=== PATIENT | female | born 1960 | race Caucasian/White ===

== ENCOUNTER 2019-05-19 06:40 | Day surgery (SDC) | payer OTHER ==
[~2019-05-19 06:40] MED LIST: Clindamycin Phosphate 900 MG in Dextrose 5% in Water 50 ML IV SCH; Clindamycin Phosphate in D5W 900 MG in Premix Bag 1 BAG IV ONE; DEXTROSE 5% IV ONE; GENTAMICIN IV ONE; Gentamicin Pediatric 10 MG/ML 2 ML SDV IV ONE; Lactated Ringers 1,000 ML IV SCH; Sodium Chloride 0.9% 10 ML SDV IV PRN; Sodium Chloride 0.9% 10 ML Syringe FLUSH PRN; Sodium Chloride 0.9% 2.5 ML Syringe FLUSH PRN; WATER IV ONE
[2019-05-19] MEDS ORDERED: Rocuronium 100 MG/10 ML Syringe ONE (07:06)
[2019-05-19] MEDS ORDERED: Glycopyrrolate 0.2 MG/ML SDV ONE (07:06)
[2019-05-19] MEDS ORDERED: Ondansetron 4 MG/2 ML SDV ONE (07:06)
[2019-05-19] MEDS ORDERED: Neostigmine Methylsulfate 1 MG/ML 5 ML Syringe ONE (07:06)
[2019-05-19] MEDS ORDERED: Lidocaine 2% 5 ML SDV ONE (07:06)
[2019-05-19] MEDS ORDERED: Propofol 200 MG/20 ML SDV ONE (07:07)
[2019-05-19] MEDS ORDERED: fentaNYL 250 MCG/5 ML SDV ONE (07:07)
[2019-05-19] MEDS ORDERED: Midazolam 1 MG/ML 2 ML SDV ONE (07:07)
[2019-05-19] MEDS ORDERED: Lidocaine 1% 20 ML MDV ONE (07:34)
[2019-05-19] MEDS ORDERED: Bupivacaine 0.5% 10 ML SDV ONE (07:35)
[2019-05-19 07:38] LABS: CARBON DIOXIDE,CO2 30.8 mmol/L (21.0-32.0)
[2019-05-19] MEDS ORDERED: Fluorescein 5 ML Vial ONE (07:41)
[2019-05-19] MEDS ORDERED: Lidocaine 2% Jelly 30 ML Tube ONE (07:43)
[2019-05-19] MEDS ORDERED: Scopolamine 1.5 MG Transdermal Patch TRDERM PRN (07:53)
--- NOTE | 2019-05-19 07:56 | PCM.PREANE ---
Preanesthetic Assessment - Anesthesia/Transfusion/Family Hx Anesthesia History: Prior Anesthesia Without Reaction Other Type of Anesthesia Reaction Comment: sister has problems with N&V and is hard to wake after anesthesia Family History of Anesthesia Reaction: No Transfusion History: No Prior Transfusion(s) - Review of Systems General: No Symptoms Pulmonary: No Symptoms Cardiovascular: No Symptoms Gastrointestinal: No Symptoms - Physical Assessment Vital Signs: Last Vital Signs Temp 98.2 F 05/19/19 07:47 Pulse Resp 16 05/19/19 07:47 BP 142/73 H 05/19/19 07:47 Pulse Ox 97 05/19/19 07:47 Height: 5 ft 5 in Weight: 120.202 kg ASA Class: 2 Mental Status: Alert & Oriented x3 Airway Class: Mallampati = 3 Dentition: Reports: Bridge (lateral maxillary ) ROM/Head Extension: Full Lungs: Clear to Auscultation, Normal Respiratory Effort Cardiovascular: Regular Rate, Regular Rhythm - Lab Values: Laboratory Last Values WBC 6.99 K/uL (4.0-11.0) 05/19/19 07:10 RBC 4.72 M/uL (4.30-5.90) 05/19/19 07:10 Hgb 14.8 g/dL (12.0-16.0) 05/19/19 07:10 Hct 44.0 % (36.0-46.0) 05/19/19 07:10 MCV 93.2 fL (80.0-98.0) 05/19/19 07:10 MCH 31.4 pg (27.0-32.0) 05/19/19 07:10 MCHC 33.6 g/dL (31.0-37.0) 05/19/19 07:10 RDW Std Deviation 48.0 fl (28.0-62.0) 05/19/19 07:10 RDW Coeff of [place] 14 % (11.0-15.0) 05/19/19 07:10 Plt Count 303 K/uL (150-400) 05/19/19 07:10 MPV 10.50 fL (7.40-12.00) 05/19/19 07:10 Nucleated RBC % 0.0 /100WBC 05/19/19 07:10 Nucleated RBCs # 0 K/uL 05/19/19 07:10 Sodium 141 mmol/L (136-145) 05/19/19 07:10 Potassium 4.0 mmol/L (3.5-5.1) 05/19/19 07:10 Chloride 104 mmol/L (98-107) 05/19/19 07:10 Carbon Dioxide 30.8 mmol/L (21.0-32.0) 05/19/19 07:10 BUN 12 mg/dL (7.0-18.0) 05/19/19 07:10 Creatinine 1.2 mg/dL (0.6-1.0) H 05/19/19 07:10 Est Cr Clr Drug Dosing 44.30 mL/min 05/19/19 07:10 Estimated GFR (MDRD) 45.7 ml/min 05/19/19 07:10 Glucose 118 mg/dL (74-106) H 05/19/19 07:10 Calcium 9.5 mg/dL (8.5-10.1) 05/19/19 07:10 - Allergies Allergies/Adverse Reactions: Allergies Allergy/AdvReac Type Severity Reaction Status Date / Time amoxicillin Allergy Hives Verified 05/19/19 07:50 - Blood Blood Available: No - Anesthesia Plan Pre-Op Medication Ordered: None - Acknowledgements Anesthesia Type Planned: General Anesthesia Pt an Appropriate Candidate for the Planned Anesthesia: Yes Alternatives and Risks of Anesthesia Discussed w Pt/Guardian: Yes Pt/Guardian Understands and Agrees with Anesthesia Plan: Yes Additional Comments: PMH: psoriatic arthritis, fibromyalgia, urinary incontinence, HTN, gabipentin for joint pain PLAN: get PreAnesthesia Questionnaire HEENT History: Reports: None Cardiovascular History: Reports: High Cholesterol, Hypertension Respiratory History: Reports: None Gastrointestinal History: Reports: GERD Genitourinary History: Reports: UTI, Recurrent, Other (See Below) Other Genitourinary History: stress incontinence [employer] CHASER History: Reports: Musculoskeletal History: Reports: Fibromyalgia, RA Other Musculoskeletal History: posaritic arthritis Neurological History: Reports: None Psychiatric History: Reports: Anxiety, Depression Endocrine/Metabolic History: Reports: Obesity/BMI 30+, Osteopenia Hematologic History: Reports: None Immunologic History: Reports: None Oncologic (Cancer) History: Reports: None Dermatologic History: Reports: Other (See Below) Other Dermatologic History: posaritic arthritis - Past Surgical History Head Surgeries/Procedures: Reports: None HEENT Surgical History: Reports: Cataract Surgery, Other (See Below) Other HEENT Surgeries/Procedures: laser of both eyes, bren cataract extraction, eye lid lift Cardiovascular Surgical History: Reports: None Respiratory Surgical History: Reports: None GI Surgical History: Reports: Colonoscopy Female Surgical History: Reports: Breast Biopsy, Cervical Cryotherapy Endocrine Surgical History: Reports: None Neurological Surgical History: Reports: None Musculoskeletal Surgical History: Reports: None Oncologic Surgical History: Reports: Biopsy of Breast Dermatological Surgical History: Reports: None - SUBSTANCE USE Smoking Status *Q: Former Smoker Tobacco Use Within Last Twelve Months: No Recreational Drug Use History: No - HOME MEDS Home Medications: Home Meds DULoxetine HCl [Duloxetine HCl] 20 mg PO DAILY 05/15/19 [History] Etanercept [Enbrel] 1 injection SUBCUT WEEKLY 05/15/19 [History] Folic Acid 1 mg PO DAILY 05/15/19 [History] Furosemide [Lasix] 20 mg PO DAILY 05/15/19 [History] Gabapentin [Neurontin] 600 mg PO TID 05/15/19 [History] Herbal Supplements 1 dose PO ASDIRECTED 05/15/19 [History] Magnesium Oxide [Magnesium] 1 tab PO BEDTIME 05/15/19 [History] Nystatin 1 applic TOP TID PRN 05/15/19 [History] Oxybutynin Chloride [Oxybutynin Chloride ER] 10 mg PO DAILY 05/15/19 [History] Triamcinolone Acetonide [Nasacort] 1 spray NASBOTH ASDIRECTED PRN 05/15/19 [ History] Trimo-Kc Cream 1 insert VAG ASDIRECTED 05/15/19 [History] atorvaSTATin Calcium [Atorvastatin Calcium] 40 mg PO BEDTIME 05/15/19 [History] estradioL [Estrace 0.01% Vaginal Crm] 1 insert VAG ASDIRECTED 05/15/19 [History] metHOTREXate sodium [Trexall] 6 tab PO WEEKLY 05/15/19 [History] traZODone HCl [Trazodone HCl] 0.5 tab PO BEDTIME 05/15/19 [History] - CURRENT (IN HOUSE) MEDS Current Meds: Current Medications Lactated Ringer's (Ringers, Lactated) 1,000 mls @ 500 mls/hr IV BOLUS JIMBO Last Admin: 05/19/19 07:40 Dose: 500 mls/hr Sodium Chloride (Saline Flush) 10 ml FLUSH ASDIRECTED PRN PRN Reason: Keep Vein Open Sodium Chloride (Saline Flush) 2.5 ml FLUSH ASDIRECTED PRN PRN Reason: Keep Vein Open Sodium Chloride (Normal Saline) 10 ml IV ASDIRECTED PRN PRN Reason: IV Use Discontinued Medications Bupivacaine HCl (Sensorcaine-Mpf 0.5%) Confirm Administered Dose 20 ml .ROUTE .STK-MED ONE Stop: 05/19/19 07:36 Fentanyl (Sublimaze) Confirm Administered Dose 250 mcg .ROUTE .STK-MED ONE Stop: 05/19/19 07:08 Fluorescein Sodium (Ak-Fluor) Confirm Administered Dose 5 ml .ROUTE .STK-MED ONE Stop: 05/19/19 07:42 Gentamicin Sulfate (Gentamicin) 0 mg IV ONETIME ONE Stop: 05/19/19 06:07 Glycopyrrolate (Robinul) Confirm Administered Dose 0.4 mg .ROUTE .STK-MED ONE Stop: 05/19/19 07:07 Clindamycin Phosphate 900 mg/ (Dextrose/Water) 56 mls @ 100 mls/hr IV ONETIME JIBMO Gentamicin Sulfate 285 mg/ (Dextrose/Water) 107.125 mls @ 107.125 mls/hr IV NOW ONE Stop: 05/19/19 07:29 Clindamycin Phosphate 900 mg/ (Premix) 50 mls @ 100 mls/hr IV NOW ONE Stop: 05/19/19 06:59 Last Admin: 05/19/19 07:30 Dose: 100 mls/hr Lidocaine (Xylocaine-Mpf 2%) Confirm Administered Dose 5 ml .ROUTE .STK-MED ONE Stop: 05/19/19 07:07 Lidocaine HCl (Xylocaine 1%) Confirm Administered Dose 20 ml .ROUTE .STK-MED ONE Stop: 05/19/19 07:35 Lidocaine HCl (Xylocaine 2% Jelly) Confirm Administered Dose 30 ml .ROUTE .STK- MED ONE Stop: 05/19/19 07:44 Midazolam HCl (Versed 1 Mg/Ml) Confirm Administered Dose 2 mg .ROUTE .STK-MED ONE Stop: 05/19/19 07:08 Neostigmine Methylsulfate (Neostigmine) Confirm Administered Dose 5 mg .ROUTE .STK-MED ONE Stop: 05/19/19 07:07 Ondansetron HCl (Zofran) Confirm Administered Dose 4 mg .ROUTE .STK-MED ONE Stop: 05/19/19 07:07 Propofol (Diprivan 20 Ml) Confirm Administered Dose 200 mg .ROUTE .STK-MED ONE Stop: 05/19/19 07:08 Rocuronium [place] (Zemuron) Confirm Administered Dose 100 mg .ROUTE .STK-MED ONE Stop: 05/19/19 07:07
[2019-05-19] MEDS ORDERED: Vasopressin 20 Units/1 ML MDV ONE ×2 (08:00→08:34)
[2019-05-19] MEDS ORDERED: ePHEDrine 50 MG/ML SDV ONE (08:22)
[2019-05-19] MEDS ORDERED: Furosemide 40 MG/4 ML VIAL ONE (08:24)
[2019-05-19] MEDS ORDERED: Phenylephrine/Normal Saline 100 MCG/ML 10 ML Syringe ONE (08:25)
[2019-05-19] MEDS ORDERED: Ketamine 500 mg/10 ML MDV ONE (08:42)
[2019-05-19] MEDS ORDERED: Dexamethasone 4 MG/ML 5 ML MDV ONE (09:16)
[2019-05-19] MEDS ORDERED: Albuterol 0.083% 2.5 MG/3 ML Neb Soln NEB PRN (09:47)
[2019-05-19] MEDS ORDERED: Naloxone 0.4 MG/ML Syringe IVPUSH PRN (09:47)
[2019-05-19] MEDS ORDERED: 50% Dextrose in Water 50 ML Syringe IVPUSH PRN (09:47)
[2019-05-19] MEDS ORDERED: Atropine 0.1 MG/ML 10 ML Syringe IVPUSH PRN ×2 (09:47)
[2019-05-19] MEDS ORDERED: EPINEPHrine 1:10,000 1 MG/10 ML Syringe IVPUSH PRN (09:47)
[2019-05-19] MEDS ORDERED: Acetaminophen/oxyCODONE 325-5 MG Tab PO PRN (11:16)
[2019-05-19] MEDS ORDERED: Promethazine 25 MG/ML SDV IM PRN (11:16)
[2019-05-19] MEDS ORDERED: Ketorolac 30 MG/ML SDV IVPUSH PRN ×2 (11:16→17:59)
[2019-05-19] MEDS ORDERED: Ketorolac 30 MG/ML SDV IVPUSH ONE (11:16)
[2019-05-19] MEDS ORDERED: Morphine 4 MG/ML Syringe IVPUSH PRN (11:16)
[2019-05-19] MEDS ORDERED: Ondansetron 4 MG/2 ML SDV IVPUSH PRN (11:16)
[2019-05-19] MEDS ORDERED: Dextrose 5%-0.45% NaCl 1,000 ML IV SCH ×2 (11:30→14:30)
--- NOTE | 2019-05-19 11:30 | PCM.OPNOTE ---
- General Post-Op/Procedure Note Date of Surgery/Procedure: 05/19/19 Operative Procedure(s): Total vaginal hysterectomy. Midurethral Single incision sling. Anterior Colporraphy. Cytoscopy Findings: Stage 2 Uterovaginal prolapse Cystocoele Normal sized anteverted uterus L Pre Op Diagnosis: Stress Urinary Incontinence. Stage 2 Uterovaginal prolapse. Cystocoele Post-Op Diagnosis: Same Primary Surgeon: Joel Terrell Secondary Surgeon: Stephanie Basilio Anesthesia Provider: Trent Dowd Pathology: Uterus Fluid Replacement, Intraop: 2,600 Output, Urine Amount: 175 EBL in mLs: 200 Complications: None Condition: Good
[2019-05-19] MEDS: fentaNYL 100 MCG/2 ML SDV IVPUSH PRN ×2 (12:04→12:13)
[2019-05-19] MEDS ORDERED: hydrALAZINE 20 MG/ML SDV IVPUSH ONE (13:06)
[2019-05-19] MEDS ORDERED: Erythromycin Base 0.5% Ophth Oint 1 GM Tube EYELF ONE (13:07)
--- NOTE | 2019-05-19 13:58 | PCM.POSTAN ---
POST ANESTHESIA ASSESSMENT - MENTAL STATUS Mental Status: Alert, Oriented - VITAL SIGNS Vital Signs: Last Vital Signs Temp 97.6 F 05/19/19 12:45 Pulse 88 05/19/19 12:45 Resp 19 05/19/19 12:45 BP 163/72 H 05/19/19 13:15 Pulse Ox 96 05/19/19 12:55 - RESPIRATORY Respiratory Status: Respiratory Rate WNL, Airway Patent, O2 Saturation Stable - CARDIOVASCULAR CV Status: Pulse Rate WNL, Blood Pressure Stable - GASTROINTESTINAL GI Status: No Symptoms - POST OP HYDRATION Hydration Status: Adequate & Stable
[2019-05-19] MEDS ORDERED: Metoclopramide 10 MG/2 ML SDV IVPUSH SCH (14:00)
[2019-05-19] MEDS ORDERED: Furosemide 20 MG Tab PO ONE (14:20)
[2019-05-19] MEDS: Mineral Oil/Petrolatum Ophth Oint 3.5 GM Tube EYELF SCH ×2 (15:30→21:30)
[2019-05-19 15:40] LABS: CARBON DIOXIDE,CO2 29.4 mmol/L (21.0-32.0); POTASSIUM,K 4.4 mmol/L (3.5-5.1)
[2019-05-19] MEDS ORDERED: Ketorolac 0.5% Ophth Soln 5 ML Bottle EYELF SCH (18:00)
[2019-05-19] MEDS ORDERED: Ibuprofen 800 MG Tab PO ONE (18:00)
--- NOTE | 2019-05-19 18:02 | PCM48HPAN ---
Post Anesthesia Note - EVALUATION WITHIN 48HRS OF ANESTHETIC Vital Signs in Normal Range: Yes Patient Participated in Evaluation: Yes Respiratory Function Stable: Yes Airway Patent: Yes Cardiovascular Function Stable: Yes Hydration Status Stable: Yes Pain Control Satisfactory: Yes Nausea and Vomiting Control Satisfactory: Yes Mental Status Recovered: Yes Vital Signs: Last Vital Signs Temp 99.0 F 05/19/19 12:45 Pulse 112 H 05/19/19 12:51 Resp 16 05/19/19 12:45 BP 163/72 H 05/19/19 13:15 Pulse Ox 97 05/19/19 17:15
[2019-05-19] MEDS: Acetaminophen/oxyCODONE 325-5 MG Tab PO PRN (21:31)
[2019-05-20] MEDS: Acetaminophen/oxyCODONE 325-5 MG Tab PO PRN ×2 (03:17→08:15)
[2019-05-20 06:45] LABS: CARBON DIOXIDE,CO2 29.8 mmol/L (21.0-32.0); POTASSIUM,K 4.6 mmol/L (3.5-5.1)
[2019-05-20] MEDS: Mineral Oil/Petrolatum Ophth Oint 3.5 GM Tube EYELF SCH (08:13)
[2019-05-20] MEDS ORDERED: Clindamycin Phosphate in D5W 900 MG in Premix Bag 1 BAG IV ONE ×2 (08:35)
[2019-05-20] MEDS ORDERED: Enoxaparin 40 MG/0.4 ML Syringe SUBCUT ONE (08:48)
--- NOTE | 2019-05-20 09:04 | PCM.SURGPN ---
- General Info Date of Service: 05/20/19 Date of Surgery/Procedure: 04/20/19 POD#: 1 Post-Op Diagnosis: Stress Urinary Incontinence. Uterovaginal prolapse. cystocoele Functional Status: Reports: Pain Controlled, Tolerating Diet, Ambulating, Urinating - Review of Systems General: Reports: No Symptoms HEENT: Reports: No Symptoms Pulmonary: Reports: No Symptoms Cardiovascular: Reports: No Symptoms Gastrointestinal: Reports: No Symptoms Genitourinary: Reports: No Symptoms Musculoskeletal: Reports: No Symptoms Skin: Reports: No Symptoms Neurological: Reports: No Symptoms Psychiatric: Reports: No Symptoms - Patient Data Vitals - Most Recent: Last Vital Signs Temp 37.1 C 05/20/19 08:15 Pulse 69 05/20/19 08:15 Resp 17 05/20/19 08:15 BP 146/67 H 05/20/19 08:15 Pulse Ox 100 05/20/19 08:15 Weight - Most Recent: 120.202 kg I&O - Last 24 Hours: Intake & Output 05/19/19 05/20/19 05/20/19 22:59 06:59 14:59 Output Total 2175 1725 Balance -2175 -1725 Lab Results Last 24 Hrs: Laboratory Results - last 24 hr 05/19/19 05/20/19 05/20/19 Range/Units 14:49 05:56 05:56 WBC 18.20 H (4.0-11.0) K/uL RBC 4.09 L (4.30-5.90) M/uL Hgb 12.6 (12.0-16.0) g/dL Hct 39.4 (36.0-46.0) % MCV 96.3 (80.0-98.0) fL MCH 30.8 (27.0-32.0) pg MCHC 32.0 (31.0-37.0) g/dL RDW Std Deviation 50.6 (28.0-62.0) fl RDW Coeff of [place]rbano 14 (11.0-15.0) % Plt Count 310 (150-400) K/uL MPV 10.60 (7.40-12.00) fL Neut % (Auto) 91.5 H (48.0-80.0) % Lymph % (Auto) 4.7 L (16.0-40.0) % [place] % (Auto) 3.7 (0.0-15.0) % Eos % (Auto) 0.0 (0.0-7.0) % Baso % (Auto) 0.1 (0.0-1.5) % Neut # (Auto) 16.7 H (1.4-5.7) K/uL Lymph # (Auto) 0.9 (0.6-2.4) K/uL [place] # (Auto) 0.7 (0.0-0.8) K/uL Eos # (Auto) 0.0 (0.0-0.7) K/uL Baso # (Auto) 0.0 (0.0-0.1) K/uL Nucleated RBC % 0.0 /100WBC Nucleated RBCs # 0 K/uL Sodium 140 140 (136-145) mmol/L Potassium 4.4 4.6 (3.5-5.1) mmol/L Chloride 103 103 (98-107) mmol/L Carbon Dioxide 29.4 29.8 (21.0-32.0) mmol/L BUN 10 12 (7.0-18.0) mg/dL Creatinine 1.2 H 1.3 H (0.6-1.0) mg/dL Est Cr Clr Drug Dosing 44.30 40.89 mL/min Estimated GFR (MDRD) 45.7 41.6 ml/min Glucose 161 H 128 H (74-106) mg/dL Calcium 8.5 8.4 L (8.5-10.1) mg/dL Med Orders - Current: Current Medications Lactated Ringer's (Ringers, Lactated) 1,000 mls @ 500 mls/hr IV BOLUS [facility] Last Admin: 05/19/19 07:40 Dose: 500 mls/hr Dextrose/Sodium Chloride (Dextrose 5%-1/2 Ns) 1,000 mls @ 100 mls/hr IV ASDIRECTED [facility] Clindamycin Phosphate 900 mg/ (Premix) 50 mls @ 100 mls/hr IV ONETIME ONE Stop: 05/20/19 09:04 Metoclopramide HCl (Reglan) 10 mg IVPUSH ONETIME [facility] Mineral Oil/White Petrolatum (Lacri-Lube S.O.P Oint) 1 gm EYELF BID [facility] Last Admin: 05/20/19 08:13 Dose: 1 applic Morphine Sulfate (Morphine) 4 mg IVPUSH Q2H PRN PRN Reason: Pain (severe 7-10) Last Admin: 05/19/19 13:34 Dose: 4 mg Ondansetron HCl (Zofran) 4 mg IVPUSH Q6H PRN PRN Reason: Nausea/Vomiting Oxycodone/Acetaminophen (Percocet 325-5 Mg) 1 tab PO Q4H PRN PRN Reason: Pain (moderate 4-6) Last Admin: 05/20/19 08:15 Dose: 1 tab Oxycodone/Acetaminophen (Percocet 325-5 Mg) 2 tab PO Q4H PRN PRN Reason: Pain (moderate 4-6) Promethazine HCl (Phenergan) 25 mg IM Q6H PRN PRN Reason: Nausea/Vomiting Scopolamine (Transderm-Scop) 1.5 mg TRDERM Q72H PRN PRN Reason: Nausea/Vomiting Last Admin: 05/19/19 07:58 Dose: 1.5 mg Sodium Chloride (Saline Flush) 10 ml FLUSH ASDIRECTED PRN PRN Reason: Keep Vein Open Sodium Chloride (Saline Flush) 2.5 ml FLUSH ASDIRECTED PRN PRN Reason: Keep Vein Open Sodium Chloride (Normal Saline) 10 ml IV ASDIRECTED PRN PRN Reason: IV Use Discontinued Medications Albuterol (Proventil Neb Soln) 2.5 mg NEB ONETIME PRN PRN Reason: Wheezing Atropine Sulfate (Atropine 0.1 Mg/Ml) 0.5 mg IVPUSH ASDIRECTED PRN PRN Reason: Hypo-perfusion Atropine Sulfate (Atropine 0.1 Mg/Ml) 1 mg IVPUSH ASDIRECTED PRN PRN Reason: Hypo-Perfusion Bupivacaine HCl (Sensorcaine-Mpf 0.5%) Confirm Administered Dose 20 ml .ROUTE .STK-MED ONE Stop: 05/19/19 07:36 Dexamethasone (Dexamethasone) Confirm Administered Dose 20 mg .ROUTE .STK-MED ONE Stop: 05/19/19 09:17 Dextrose/Water (Dextrose 50% In Water) 50 ml IVPUSH ASDIRECTED PRN PRN Reason: Hypoglycemia Enoxaparin Sodium (Lovenox) 40 mg SUBCUT ONETIME ONE Stop: 05/20/19 08:49 Ephedrine Sulfate (Ephedrine Sulfate) Confirm Administered Dose 50 mg .ROUTE .STK-MED ONE Stop: 05/19/19 08:23 Epinephrine HCl (Epinephrine 1:10,000) 1 mg IVPUSH ASDIRECTED PRN PRN Reason: ACLS Guidelines Erythromycin (Erythromycin 0.5% Ophth Oint) 1 gm EYELF ONETIME ONE Stop: 05/19/19 13:08 Last Admin: 05/19/19 13:24 Dose: 1 gram Fentanyl (Sublimaze) Confirm Administered Dose 250 mcg .ROUTE .STK-MED ONE Stop: 05/19/19 07:08 Fentanyl (Sublimaze) 50 mcg IVPUSH Q5M PRN PRN Reason: Pain Last Admin: 05/19/19 12:13 Dose: 50 mcg Fluorescein Sodium (Ak-Fluor) Confirm Administered Dose 5 ml .ROUTE .STK-MED ONE Stop: 05/19/19 07:42 Furosemide (Lasix) Confirm Administered Dose 40 mg .ROUTE .STK-MED ONE Stop: 05/19/19 08:25 Furosemide (Lasix) 20 mg PO ONETIME ONE Stop: 05/19/19 14:21 Last Admin: 05/19/19 14:56 Dose: 20 mg Gentamicin Sulfate (Gentamicin) 0 mg IV ONETIME ONE Stop: 05/19/19 06:07 Glycopyrrolate (Robinul) Confirm Administered Dose 0.4 mg .ROUTE .STK-MED ONE Stop: 05/19/19 07:07 Hydralazine HCl (Apresoline) 5 mg IVPUSH ONETIME ONE Stop: 05/19/19 13:07 Last Admin: 05/19/19 13:27 Dose: 5 mg Clindamycin Phosphate 900 mg/ (Dextrose/Water) 56 mls @ 100 mls/hr IV ONETIME JIMBO Gentamicin Sulfate 285 mg/ (Dextrose/Water) 107.125 mls @ 107.125 mls/hr IV NOW ONE Stop: 05/19/19 07:29 Last Admin: 05/20/19 08:45 Dose: Not Given Clindamycin Phosphate 900 mg/ (Premix) 50 mls @ 100 mls/hr IV NOW ONE Stop: 05/19/19 06:59 Last Admin: 05/19/19 07:30 Dose: 100 mls/hr Dextrose/Sodium Chloride (Dextrose 5%-1/2 Ns) 1,000 mls @ 125 mls/hr IV ASDIRECTED JIMBO Last Admin: 05/19/19 13:41 Dose: 125 mls/hr Ibuprofen (Motrin) 800 mg PO Q6H ONE Stop: 05/19/19 18:01 Ketamine HCl (Ketalar) Confirm Administered Dose 500 mg .ROUTE .STK-MED ONE Stop: 05/19/19 08:43 Ketorolac Tromethamine (Toradol) 30 mg IVPUSH ONETIME ONE Stop: 05/19/19 11:17 Last Admin: 05/19/19 11:58 Dose: 30 mg Ketorolac Tromethamine (Toradol) 30 mg IVPUSH Q6H PRN PRN Reason: Pain (severe 7-10) Stop: 05/24/19 11:16 Ketorolac Tromethamine (Acular 0.5% Ophth Soln) 1 ml EYELF QID [facility] Ketorolac Tromethamine (Toradol) 30 mg IVPUSH Q6H PRN PRN Reason: Pain (severe 7-10) Stop: 05/24/19 11:16 Lidocaine (Xylocaine-Mpf 2%) Confirm Administered Dose 5 ml .ROUTE .STK-MED ONE Stop: 05/19/19 07:07 Lidocaine HCl (Xylocaine 1%) Confirm Administered Dose 20 ml .ROUTE .STK-MED ONE Stop: 05/19/19 07:35 Lidocaine HCl (Xylocaine 2% Jelly) Confirm Administered Dose 30 ml .ROUTE .STK- MED ONE Stop: 05/19/19 07:44 Midazolam HCl (Versed 1 Mg/Ml) Confirm Administered Dose 2 mg .ROUTE .STK-MED ONE Stop: 05/19/19 07:08 Naloxone HCl (Narcan) 0.1 mg IVPUSH ASDIRECTED PRN PRN Reason: Respiratory Depression Neostigmine Methylsulfate (Neostigmine) Confirm Administered Dose 5 mg .ROUTE .STK-MED ONE Stop: 05/19/19 07:07 Ondansetron HCl (Zofran) Confirm Administered Dose 4 mg .ROUTE .STK-MED ONE Stop: 05/19/19 07:07 Phenylephrine HCl (Phenylephrine In Ns 100 Mcg/Ml) Confirm Administered Dose 1 mg .ROUTE .STK-MED ONE Stop: 05/19/19 08:26 Propofol (Diprivan 20 Ml) Confirm Administered Dose 200 mg .ROUTE .STK-MED ONE Stop: 05/19/19 07:08 Rocuronium [place] (Zemuron) Confirm Administered Dose 100 mg .ROUTE .STK-MED ONE Stop: 05/19/19 07:07 Vasopressin (Vasopressin) Confirm Administered Dose 20 units .ROUTE .STK-MED ONE Stop: 05/19/19 08:01 Vasopressin (Vasopressin) Confirm Administered Dose 20 units .ROUTE .STK-MED ONE Stop: 05/19/19 08:35 - Exam General: Alert HEENT: Pupils Equal Neck: Supple Lungs: Clear to Auscultation Cardiovascular: Regular Rate GI/Abdominal Exam: Normal Bowel Sounds Extremities: Normal Inspection Neurological: No New Focal Deficit Psy/Mental Status: Alert Sepsis Event Note - Evaluation Sepsis Screening Result: No Definite Risk - Focused Exam Vital Signs: Vital Signs Temp Pulse Resp BP Pulse Ox 05/20/19 08:15 37.1 C 69 17 146/67 H 100 05/20/19 00:00 36.7 C 74 18 139/64 94 L Date Exam was Performed: 05/20/19 Time Exam was Performed: 08:57 - Problem List & Annotations (1) S/P vaginal hysterectomy SNOMED Code(s): 825701174, 759395382 Code(s): Z90.710 - ACQUIRED ABSENCE OF BOTH CERVIX AND UTERUS Status: Acute Current Visit: Yes - Problem List Review Problem List Initiated/Reviewed/Updated: Yes - My Orders Last 24 Hours: Active Orders 24 hr Category Date Time Status Patient Status [ADT] Routine ADT 05/19/19 11:16 Active Blood Glucose Check, Bedside [RC] PRN Care 05/19/19 09:47 Active Notify Provider Intake and Out [RC] ASDIRECTED Care 05/19/19 11:16 Active Notify Provider Vital Signs [RC] ASDIRECTED Care 05/19/19 09:47 Active Oxygen Therapy [RC] PRN Care 05/19/19 09:47 Active RT Aerosol Therapy [RC] ASDIRECTED Care 05/19/19 09:47 Active RT Incentive Spirometry [RC] Q2HWA Care 05/19/19 11:16 Active Up With Assistance [RC] PER UNIT ROUTINE Care 05/19/19 11:16 Active Up ad Jacqueline [RC] PER UNIT ROUTINE Care 05/19/19 11:16 Active Urinary Catheter Removal [RC] Per Unit Routine Care 05/19/19 11:16 Active Regular Diet [DIET] Diet 05/19/19 Dinner Active Acetaminophen/oxyCODONE [Percocet 325-5 MG] Med 05/19/19 11:16 Active 1 tab PO Q4H PRN Acetaminophen/oxyCODONE [Percocet 325-5 MG] Med 05/19/19 11:16 Active 2 tab PO Q4H PRN Clindamycin Phosphate in D5W [Cleocin in D5W] 900 mg Med 05/20/19 08:35 Active Premix Bag 1 bag IV ONETIME Dextrose 5%-0.45% NaCl [Dextrose 5%-1/2 NS] 1,000 ml Med 05/19/19 14:30 Active IV ASDIRECTED Metoclopramide [Reglan] Med 05/19/19 14:00 Active 10 mg IVPUSH ONETIME Mineral Oil/Petrolatum Oint [Lacri-Lube S.O.P Oint] Med 05/19/19 15:30 Active 1 gm EYELF BID Morphine Med 05/19/19 11:16 Active 4 mg IVPUSH Q2H PRN Ondansetron [Zofran] Med 05/19/19 11:16 Active 4 mg IVPUSH Q6H PRN Promethazine [Phenergan] Med 05/19/19 11:16 Active 25 mg IM Q6H PRN Peripheral IV Discontinue [OM.PC] Routine Oth 05/19/19 11:16 Ordered Sequential Compression Device [OM.PC] Per Unit Routine Oth 05/19/19 11:16 Ordered Resuscitation Status Routine Resus Stat 05/19/19 11:16 Ordered Medication Orders Lactated Ringer's (Ringers, Lactated) 1,000 mls @ 500 mls/hr IV BOLUS JIMBO Last Admin: 05/19/19 07:40 Dose: 500 mls/hr Dextrose/Sodium Chloride (Dextrose 5%-1/2 Ns) 1,000 mls @ 100 mls/hr IV ASDIRECTED JIMBO Clindamycin Phosphate 900 mg/ (Premix) 50 mls @ 100 mls/hr IV ONETIME ONE Stop: 05/20/19 09:04 Metoclopramide HCl (Reglan) 10 mg IVPUSH ONETIME JIMBO Mineral Oil/White Petrolatum (Lacri-Lube S.O.P Oint) 1 gm EYELF BID JIMBO Last Admin: 05/20/19 08:13 Dose: 1 applic Admin: 05/19/19 21:30 Dose: 1 applic Admin: 05/19/19 15:30 Dose: 1 gram Morphine Sulfate (Morphine) 4 mg IVPUSH Q2H PRN PRN Reason: Pain (severe 7-10) Last Admin: 05/19/19 13:34 Dose: 4 mg Ondansetron HCl (Zofran) 4 mg IVPUSH Q6H PRN PRN Reason: Nausea/Vomiting Oxycodone/Acetaminophen (Percocet 325-5 Mg) 1 tab PO Q4H PRN PRN Reason: Pain (moderate 4-6) Last Admin: 05/20/19 08:15 Dose: 1 tab Admin: 05/20/19 03:17 Dose: 1 tab Admin: 05/19/19 21:31 Dose: 1 tab Oxycodone/Acetaminophen (Percocet 325-5 Mg) 2 tab PO Q4H PRN PRN Reason: Pain (moderate 4-6) Promethazine HCl (Phenergan) 25 mg IM Q6H PRN PRN Reason: Nausea/Vomiting Scopolamine (Transderm-Scop) 1.5 mg TRDERM Q72H PRN PRN Reason: Nausea/Vomiting Last Admin: 05/19/19 07:58 Dose: 1.5 mg Sodium Chloride (Saline Flush) 10 ml FLUSH ASDIRECTED PRN PRN Reason: Keep Vein Open Sodium Chloride (Saline Flush) 2.5 ml FLUSH ASDIRECTED PRN PRN Reason: Keep Vein Open Sodium Chloride (Normal Saline) 10 ml IV ASDIRECTED PRN PRN Reason: IV Use - Assessment Assessment (Free Text/Narrative):: 59yo s/p Total vaginal hysterectomy , anterior colporraphy , Single incision Midurethral , POD1 She had left corneal abrasion after the surgery and complained of pain which is improved , Patient has an appointment at 3pm with Dr Patel She is on Erythomycin ointment and eye lube , i removed her eye patchy today. Vaginal packing removed yesterday. she is voiding and tolerating regular diet She is also ambulating and has good pain control WBC this morning is 18 , i will give 1 dose of clindamycin before discharge , she was given fever precautions - Plan Plan (Free Text/Narrative):: Discharge home Pain control with percocet Follow with opthalmology Lovenox 40mg Incentive spirometry
--- NOTE | 2019-05-20 11:35 | OR ---
SURGEON: LEXI WINCHESTER DATE OF PROCEDURE: 05/19/2019 PREOPERATIVE DIAGNOSES: 1. A 59-year-old with stress urinary incontinence. 2. Uterovaginal prolapse, grade 2. 3. Cystocele. POSTOPERATIVE DIAGNOSES: 1. A 59-year-old with stress urinary incontinence. 2. Uterovaginal prolapse, grade 2. 3. Cystocele. PROCEDURES: Total vaginal hysterectomy with Davila culdoplasty, cystocele, anterior colporrhaphy, and a single-incision midureteral sling. ANESTHESIA: General. IV FLUID: 2600. URINE OUTPUT: 175. BLOOD LOSS: 200 mL. NOTES AND FINDING: A grade 2 cervical prolapse, uterovaginal prolapse with a cystocele, and stress urinary incontinence. BRIEF HISTORY: A 59-year-old who had been followed with uterovaginal prolapse and stress incontinence. She already had a cystometry done which confirmed the above noted findings. She had used the incontinence pessary, but she desired definitive management. The patient also had mixed incontinence. She had some comorbidities, and she was explained risks, benefits, and alternatives, and she decided to proceed with a vaginal hysterectomy. DESCRIPTION OF PROCEDURE: The patient was taken to the operating room after appropriate consent was signed. She was prepared and draped in the dorsal lithotomy position with Ramses stirrups. The cervix was prepped and draped in the normal sterile fashion. A Cain catheter was inserted. The cervix was then circumferentially injected with Pitressin, diluted 20 units with 60, and a circumferential incision was made. The posterior cul-de-sac was entered without difficulty and the anterior cul-de-sac was also entered without difficulty. The cardinal ligament and uterosacral were clamped, cut, and suture ligated followed by the uterine artery, which was clamped and cut, and the ovarian ligament and the broad ligament were also clamped, cut, and suture ligated. The uterus was freed and the pedicles were inspected, was noted to be hemostatic. The Davila's was done attaching the posterior vaginal wall to the uterosacral ligament on both sides. Then, the bladder defect was noted and it was injected with Pitressin and normal saline and this was subsequently . The muscularis was from the vaginal mucosa and the vaginal mucosa was then trimmed. The bladder was reinforced with the muscularis layer in mattress stitches and the vaginal mucosa was then approximated without any difficulty. The vaginal colpotomy was then sutured with 0 Polysorb without any difficulty. Then, the cystoscopy was done to evaluate the ureters. The bladder was noted to be intact and normal. Bilateral jets were noted. Then, attention was paid to the midureteral region where the solution of Marcaine was injected. A 1 cm incision was made at the midureteral region and it was then undermined under the vaginal mucosa all the way to the pubic rami at 45-degree angle. The Solyx was then loaded and in the same fashion was put in the tunnel that was created and was directed towards the pubic rami and placed with the obturator internus muscles in a perpendicular fashion. This was also done on the other side. The sling was noted to be in good position and the incision over the wound was closed. The vagina was packed. The patient tolerated the procedure well. All instrument and pad counts were correct x2. The patient tolerated the procedure well, was taken to recovery room in stable condition. LINA OROZCO /[id number]
== END 2019-05-20 10:20 | disposition home or self-care (01) ==
LOC: MW.SDS 06:40 → MW.OB 11:50 → MW.SDS 05-20 10:20
PROVIDERS: ATTEND Obstetrics & Gynecology
DX: N81.2 Incomplete uterovaginal prolapse (principal); N39.3 Stress incontinence (female) (male); R23.4 Changes in skin texture; N76.1 Subacute and chronic vaginitis; I10 Essential (primary) hypertension; E78.00 Pure hypercholesterolemia, unspecified; K21.9 Gastro-esophageal reflux disease without esophagitis; L40.50 Arthropathic psoriasis, unspecified; F41.9 Anxiety disorder, unspecified; F32.9 Major depressive disorder, single episode, unspecified; E66.9 Obesity, unspecified; Z88.0 Allergy status to penicillin; Z87.891 Personal history of nicotine dependence; Z79.899 Other long term (current) drug therapy
CPT/HCPCS: 36415; 57288; 58270; 80048; 84702; 84703; 85025; 85027; 86850; 86900; 86901; A9270; C1771; J0360; J1100; J1650; J1885; J1940; J2001; J2250; J2270; J2370; J2405; J2704; J3010; J3490; J7042; J7120; 88307

== ENCOUNTER 2020-06-29 17:56 | Inpatient (IN) | payer OTHER ==
--- NOTE | 2020-06-29 18:36 | EDM.PDOC ---
ED HPI GENERAL MEDICAL PROBLEM - General Chief Complaint: Respiratory Problem Stated Complaint: COVID POSOTIVE Time Seen by Provider: 06/29/20 18:08 Source of Information: Reports: Patient History Limitations: Reports: No Limitations - History of Present Illness INITIAL COMMENTS - FREE TEXT/NARRATIVE: Presents reporting shortness of breath. The patient states that on Sunday she tested positive for Covid. Since that time she has had loose stools, body aches, headache, sinus fullness. She has not lost her sense of taste or smell, had a sore throat, nausea or vomiting. Now, she states that she has had an increasing feeling that she cannot catch her breath and thus she presents tonight. She has been drinking large amounts of water, eating and urinating fine. - Related Data Allergies Allergy/AdvReac Type Severity Reaction Status Date / Time amoxicillin Allergy Hives Verified 06/29/20 21:45 Home Meds: Home Meds DULoxetine HCl [Duloxetine HCl] 90 mg PO DAILY 05/15/19 [History] Etanercept [Enbrel] 1 injection SUBCUT WEEKLY 05/15/19 [History] Folic Acid 2 mg PO DAILY 05/15/19 [History] Furosemide [Lasix] 20 mg PO BID 05/15/19 [History] Gabapentin [Neurontin] 600 mg PO TID 05/15/19 [History] Herbal Supplements 1 dose PO ASDIRECTED 05/15/19 [History] Magnesium Oxide [Magnesium] 1 tab PO BEDTIME 05/15/19 [History] Nystatin 1 applic TOP TID PRN 05/15/19 [History] Oxybutynin Chloride [Oxybutynin Chloride ER] 10 mg PO DAILY 05/15/19 [History] Triamcinolone Acetonide [Nasacort] 1 spray NASBOTH ASDIRECTED PRN 05/15/19 [History] Trimo-Kc Cream 1 insert VAG ASDIRECTED 05/15/19 [History] atorvaSTATin Calcium [Atorvastatin Calcium] 40 mg PO BEDTIME 05/15/19 [History] estradioL [Estrace 0.01% Vaginal Crm] 1 insert VAG ASDIRECTED 05/15/19 [History] metHOTREXate sodium [Trexall] 6 tab PO WEEKLY 05/15/19 [History] traZODone HCl [Trazodone HCl] 0.5 tab PO BEDTIME 05/15/19 [History] Cholecalciferol (Vitamin D3) [Vitamin D3] 5,000 unit PO DAILY 05/19/19 [History] Dextroamphetamine [Dextrostat] 10 mg OP DAILY 05/19/19 [History] Magnesium 500 mg PO DAILY 05/19/19 [History] Acetaminophen/oxyCODONE [Percocet 325-5 MG] 1 - 2 tab PO Q4H PRN #30 tablet 05/20/19 [Rx] Past Medical History HEENT History: Reports: None Cardiovascular History: Reports: High Cholesterol, Hypertension Respiratory History: Reports: SOB Gastrointestinal History: Reports: GERD Genitourinary History: Reports: UTI, Recurrent, Other (See Below) Other Genitourinary History: stress incontinence 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: Musculoskeletal History: Reports: Fibromyalgia, RA Other Musculoskeletal History: posaritic arthritis Neurological History: Reports: None Psychiatric History: Reports: Anxiety, Depression Endocrine/Metabolic History: Reports: Obesity/BMI 30+, Osteopenia Hematologic History: Reports: None Immunologic History: Reports: None Oncologic (Cancer) History: Reports: None Dermatologic History: Reports: Other (See Below) Other Dermatologic History: posaritic arthritis - Infectious Disease History Infectious Disease History: Reports: Chicken Pox, Novel Coronavirus - Past Surgical History Head Surgeries/Procedures: Reports: None HEENT Surgical History: Reports: Cataract Surgery, Other (See Below) Other HEENT Surgeries/Procedures: laser of both eyes, bren cataract extraction, eye lid lift Cardiovascular Surgical History: Reports: None Respiratory Surgical History: Reports: None GI Surgical History: Reports: Colonoscopy Female Surgical History: Reports: Breast Biopsy, Cervical Cryotherapy Endocrine Surgical History: Reports: None Neurological Surgical History: Reports: None Musculoskeletal Surgical History: Reports: None Oncologic Surgical History: Reports: Biopsy of Breast Dermatological Surgical History: Reports: None Social & Family History - Family History Family Medical History: No Pertinent Family History - Tobacco Use Tobacco Use Status *Q: Never Tobacco User - Recreational Drug Use Recreational Drug Use: No ED ROS GENERAL - Review of Systems Review Of Systems: Comprehensive ROS is negative, except as noted in HPI. ED EXAM, GENERAL - Physical Exam Exam: See Below Exam Limited By: No Limitations General Appearance: Alert, No Apparent Distress Ears: Normal External Exam Nose: Normal Inspection Throat/Mouth: Normal Inspection Head: Atraumatic, Normocephalic Neck: Normal Inspection Respiratory/Chest: No Respiratory Distress, Lungs Clear, Normal Breath Sounds Cardiovascular: Normal Peripheral Pulses, Regular Rate, Rhythm, No Murmur GI/Abdominal: Soft, No Distention, Other (Diffusely mild tender) Back Exam: Normal Inspection Extremities: Normal Inspection Neurological: Alert, Oriented Psychiatric: Normal Affect, Normal Mood Skin Exam: Warm, Dry, Intact, Normal Color, No Rash Lymphatic: No Adenopathy Course - Vital Signs Last Recorded V/S: Last Vital Signs Temp 37.4 C 06/29/20 20:46 Pulse 78 06/29/20 20:46 Resp 20 06/29/20 20:46 BP 135/68 06/29/20 20:46 Pulse Ox 93 L 06/29/20 20:46 - Orders/Labs/Meds Orders: Active Orders 24 hr Category Date Time Status Patient Status [ADT] Stat ADT 06/29/20 19:08 Active Labs: Laboratory Tests 06/29/20 06/29/20 Range/Units 18:55 18:55 WBC 5.03 (4.0-11.0) K/uL RBC 5.15 (4.30-5.90) M/uL Hgb 16.1 H (12.0-16.0) g/dL Hct 49.1 H (36.0-46.0) % MCV 95.3 (80.0-98.0) fL MCH 31.3 (27.0-32.0) pg MCHC 32.8 (31.0-37.0) g/dL RDW Std Deviation 52.5 (28.0-62.0) fl RDW Coeff of Urbano 15 (11.0-15.0) % Plt Count 192 (150-400) K/uL MPV 10.40 (7.40-12.00) fL Neut % (Auto) 62.6 (48.0-80.0) % Lymph % (Auto) 22.1 (16.0-40.0) % Tucker % (Auto) 14.7 (0.0-15.0) % Eos % (Auto) 0.4 (0.0-7.0) % Baso % (Auto) 0.2 (0.0-1.5) % Neut # (Auto) 3.2 (1.4-5.7) K/uL Lymph # (Auto) 1.1 (0.6-2.4) K/uL Tucker # (Auto) 0.7 (0.0-0.8) K/uL Eos # (Auto) 0.0 (0.0-0.7) K/uL Baso # (Auto) 0.0 (0.0-0.1) K/uL Nucleated RBC % 0.0 /100WBC Nucleated RBCs # 0 K/uL Sodium 139 (136-145) mmol/L Potassium 3.8 (3.5-5.1) mmol/L Chloride 101 (98-107) mmol/L Carbon Dioxide 30.1 (21.0-32.0) mmol/L BUN 15 (7.0-18.0) mg/dL Creatinine 1.3 H (0.6-1.0) mg/dL Est Cr Clr Drug Dosing 40.38 mL/min Estimated GFR (MDRD) 41.5 ml/min Glucose 113 H (74-106) mg/dL Calcium 8.3 L (8.5-10.1) mg/dL Total Bilirubin 1.0 (0.2-1.0) mg/dL AST 31 (15-37) IU/L ALT 35 (14-63) IU/L Alkaline Phosphatase 75 (46-116) U/L Total Protein 7.1 (6.4-8.2) g/dL Albumin 3.1 L (3.4-5.0) g/dL Globulin 4.0 (2.6-4.0) g/dL Albumin/Globulin Ratio 0.8 L (0.9-1.6) Departure - Departure Time of Disposition: 20:46 Disposition: Admitted As Inpatient 64 Condition: Good Clinical Impression: COVID-19, Hypoxemia - Discharge Information Sepsis Event Note (ED) - Evaluation Sepsis Screening Result: No Definite Risk - Focused Exam Vital Signs: Vital Signs Temp Pulse Resp BP Pulse Ox 06/29/20 18:00 37.5 C 81 18 158/68 H 90 L - My Orders Last 24 Hours: My Active Orders 06/29/20 19:08 Patient Status [ADT] Stat - Assessment/Plan Last 24 Hours: My Active Orders 06/29/20 19:08 Patient Status [ADT] Stat
--- NOTE | 2020-06-29 18:51 | CR ---
INDICATION: Shortness of breath, hypoxic, COVID positive. TECHNIQUE: Chest 1 view. COMPARISON: Chest radiograph 04/22/2015. FINDINGS: Low lung volumes. There are new diffuse interstitial opacities bilaterally which may be due to edema or atypical infection. Patchy opacities in the left lower lung. No pleural effusion or pneumothorax. Normal heart size. IMPRESSION: 1. Patchy opacities in the left lower lung may represent atelectasis or infiltrate. 2. Diffusely increased interstitial opacities bilaterally may be due to edema or atypical infection. Dictated by Raeann Nation MD @ Jun 29 2020 6:48PM Signed by Dr. Raeann Nation @ Jun 29 2020 6:50PM
[2020-06-29 19:25] LABS: CARBON DIOXIDE,CO2 30.1 mmol/L (21.0-32.0); POTASSIUM,K 3.8 mmol/L (3.5-5.1)
[2020-06-29] MEDS: Dexamethasone 4 MG Tab PO SCH (22:55)
[2020-06-29] MEDS ORDERED: REMDESIVIR 200 MG in Sodium Chloride 0.9% 250 ML IV ONE (23:03)
[2020-06-29] MEDS ORDERED: Acetaminophen 325 MG Tab PO PRN (23:04)
[2020-06-29] MEDS ORDERED: REMDESIVIR 100 MG in Sodium Chloride 0.9% 100 ML IV SCH (23:15)
--- NOTE | 2020-06-29 23:15 | PCM.HP.2 ---
H&P History of Present Illness - General Date of Service: 06/29/20 Admit Problem/Dx: Admission Diagnosis/Problem Admission Diagnosis/Problem Hypoxemia - History of Present Illness Initial Comments - Free Text/Narative: 60 yo female with pmh of RA and fibromyalgia who presents to the ED with complaints of shortness of breath. Patient tested positive for COVID-19 on June 20. Patient had symptoms of fever, sinus congestion, shortness of breath and diarrhea. Patient came to the ED tonight due to shortness of breath worsening. PAtient reports feeling better since arriving to hospital. - Related Data Allergies/Adverse Reactions: Allergies Allergy/AdvReac Type Severity Reaction Status Date / Time amoxicillin Allergy Hives Verified 06/29/20 21:45 Home Medications: Home Meds DULoxetine HCl [Duloxetine HCl] 90 mg PO DAILY 05/15/19 [History] Etanercept [Enbrel] 1 injection SUBCUT WEEKLY 05/15/19 [History] Folic Acid 2 mg PO DAILY 05/15/19 [History] Furosemide [Lasix] 20 mg PO BID 05/15/19 [History] Gabapentin [Neurontin] 600 mg PO TID 05/15/19 [History] Herbal Supplements 1 dose PO ASDIRECTED 05/15/19 [History] Magnesium Oxide [Magnesium] 1 tab PO BEDTIME 05/15/19 [History] Nystatin 1 applic TOP TID PRN 05/15/19 [History] Oxybutynin Chloride [Oxybutynin Chloride ER] 10 mg PO DAILY 05/15/19 [History] atorvaSTATin Calcium [Atorvastatin Calcium] 40 mg PO BEDTIME 05/15/19 [History] metHOTREXate sodium [Trexall] 6 tab PO WEEKLY 05/15/19 [History] traZODone HCl [Trazodone HCl] 0.5 tab PO BEDTIME 05/15/19 [History] Cholecalciferol (Vitamin D3) [Vitamin D3] 5,000 unit PO DAILY 05/19/19 [History] Magnesium 500 mg PO DAILY 05/19/19 [History] Past Medical History HEENT History: Reports: None Cardiovascular History: Reports: High Cholesterol, Hypertension Respiratory History: Reports: SOB Gastrointestinal History: Reports: GERD Genitourinary History: Reports: UTI, Recurrent, Other (See Below) Other Genitourinary History: stress incontinence 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: Musculoskeletal History: Reports: Fibromyalgia, RA Other Musculoskeletal History: posaritic arthritis Neurological History: Reports: None Psychiatric History: Reports: Anxiety, Depression Endocrine/Metabolic History: Reports: Obesity/BMI 30+, Osteopenia Hematologic History: Reports: None Immunologic History: Reports: None Oncologic (Cancer) History: Reports: None Dermatologic History: Reports: Other (See Below) Other Dermatologic History: Psoriatic arthritis - Infectious Disease History Infectious Disease History: Reports: Chicken Pox, Novel Coronavirus - Past Surgical History Head Surgeries/Procedures: Reports: None HEENT Surgical History: Reports: Cataract Surgery, Other (See Below) Other HEENT Surgeries/Procedures: laser of both eyes, bren cataract extraction, eye lid lift Cardiovascular Surgical History: Reports: None Respiratory Surgical History: Reports: None GI Surgical History: Reports: Colonoscopy Female Surgical History: Reports: Breast Biopsy, Cervical Cryotherapy, Hysterectomy Endocrine Surgical History: Reports: None Neurological Surgical History: Reports: None Musculoskeletal Surgical History: Reports: None Oncologic Surgical History: Reports: Biopsy of Breast Dermatological Surgical History: Reports: None Social & Family History - Family History Family Medical History: No Pertinent Family History - Tobacco Use Tobacco Use Status *Q: Former Tobacco User Used Tobacco, but Quit: Yes Month/Year Tobacco Last Used: 22 years ago Second Hand Smoke Exposure: No - Caffeine Use Caffeine Use: Reports: Soda, Tea - Recreational Drug Use Recreational Drug Use: No H&P Review of Systems - Review of Systems: Review Of Systems: Comprehensive ROS is negative, except as noted in HPI. Exam - Exam Exam: See Below - Vital Signs Vital Signs: Last Vital Signs Temp 37.4 C 06/29/20 20:46 Pulse 78 06/29/20 20:46 Resp 20 06/29/20 20:46 BP 135/68 06/29/20 20:46 Pulse Ox 93 L 06/29/20 20:46 Weight: 122.969 kg - Exam General: Alert, Oriented HEENT: Mucosa Moist & [place] Neck: Supple Lungs: Clear to Auscultation, Normal Respiratory Effort Cardiovascular: Regular Rate, Regular Rhythm GI/Abdominal Exam: Soft, Non-Tender, No Distention Extremities: Non-Tender, No Pedal Edema Skin: Warm, Dry, Intact - Patient Data Lab Results Last 24 hrs: Laboratory Results - last 24 hr 06/29/20 06/29/20 Range/Units 18:55 18:55 WBC 5.03 (4.0-11.0) K/uL RBC 5.15 (4.30-5.90) M/uL Hgb 16.1 H (12.0-16.0) g/dL Hct 49.1 H (36.0-46.0) % MCV 95.3 (80.0-98.0) fL MCH 31.3 (27.0-32.0) pg MCHC 32.8 (31.0-37.0) g/dL RDW Std Deviation 52.5 (28.0-62.0) fl RDW Coeff of Urbano 15 (11.0-15.0) % Plt Count 192 (150-400) K/uL MPV 10.40 (7.40-12.00) fL Neut % (Auto) 62.6 (48.0-80.0) % Lymph % (Auto) 22.1 (16.0-40.0) % Hayes % (Auto) 14.7 (0.0-15.0) % Eos % (Auto) 0.4 (0.0-7.0) % Baso % (Auto) 0.2 (0.0-1.5) % Neut # (Auto) 3.2 (1.4-5.7) K/uL Lymph # (Auto) 1.1 (0.6-2.4) K/uL Hayes # (Auto) 0.7 (0.0-0.8) K/uL Eos # (Auto) 0.0 (0.0-0.7) K/uL Baso # (Auto) 0.0 (0.0-0.1) K/uL Nucleated RBC % 0.0 /100WBC Nucleated RBCs # 0 K/uL Sodium 139 (136-145) mmol/L Potassium 3.8 (3.5-5.1) mmol/L Chloride 101 (98-107) mmol/L Carbon Dioxide 30.1 (21.0-32.0) mmol/L BUN 15 (7.0-18.0) mg/dL Creatinine 1.3 H (0.6-1.0) mg/dL Est Cr Clr Drug Dosing 40.38 mL/min Estimated GFR (MDRD) 41.5 ml/min Glucose 113 H (74-106) mg/dL Calcium 8.3 L (8.5-10.1) mg/dL Total Bilirubin 1.0 (0.2-1.0) mg/dL AST 31 (15-37) IU/L ALT 35 (14-63) IU/L Alkaline Phosphatase 75 (46-116) U/L Total Protein 7.1 (6.4-8.2) g/dL Albumin 3.1 L (3.4-5.0) g/dL Globulin 4.0 (2.6-4.0) g/dL Albumin/Globulin Ratio 0.8 L (0.9-1.6) Result Diagrams: 06/30/20 05:43 06/30/20 05:43 Sepsis Event Note - Evaluation Sepsis Screening Result: No Definite Risk - Focused Exam Vital Signs: Vital Signs Temp Pulse Resp BP BP Pulse Ox 06/29/20 20:46 37.4 C 78 20 135/68 93 L 06/29/20 18:00 37.5 C 81 18 158/68 H 90 L Problem List Initiated/Reviewed/Updated: Yes Orders Last 24hrs: Active Orders 24 hr Category Date Time Status Patient Status [ADT] Stat ADT 06/29/20 19:08 Active Antiembolic Devices [RC] PER UNIT ROUTINE Care 06/29/20 23:05 Ordered Oxygen Therapy [RC] PRN Care 06/29/20 23:04 Ordered Up ad Jacqueline [RC] ASDIRECTED Care 06/29/20 23:04 Ordered VTE/DVT Education [RC] PER UNIT ROUTINE Care 06/29/20 23:04 Ordered Vital Signs [RC] Q4H Care 06/29/20 23:04 Ordered Regular Diet [DIET] Diet 06/29/20 Breakfast Ordered BILIRUBIN DIRECT [CHEM] AM Lab 06/30/20 05:11 Ordered CBC WITH AUTO DIFF [HEME] AM Lab 06/30/20 05:11 Ordered COMPREHENSIVE METABOLIC PN,CMP [CHEM] AM Lab 06/30/20 05:11 Ordered Acetaminophen [TylenoL] Med 06/29/20 23:04 Ordered 650 mg PO Q4H PRN Cholecalciferol (Vitamin D3) Med 06/30/20 09:00 Unverified DOSE UNIT RTE FREQ Enoxaparin [Lovenox] Med 06/29/20 23:15 Ordered 40 mg SUBCUT Q24H Folic Acid Med 06/30/20 09:00 Ordered 2 mg PO DAILY Gabapentin Med 06/30/20 06:00 Ordered 600 mg PO TID Remdesivir 100 mg Med 06/30/20 23:15 Ordered Sodium Chloride 0.9% [Normal Saline] 100 ml IV Q24H Remdesivir 200 mg Med 06/29/20 23:03 Ordered Sodium Chloride 0.9% [Normal Saline] 250 ml IV ONETIME atorvaSTATin [Lipitor] Med 06/30/20 21:00 Ordered 40 mg PO BEDTIME dexAMETHasone Med 06/29/20 22:00 Active 6 mg PO Q24H Sequential Compression Device [OM.PC] Per Unit Routine Oth 06/29/20 23:05 Ordered Resuscitation Status Routine Resus Stat 06/29/20 23:04 Ordered Medication Orders Acetaminophen (Tylenol) 650 mg PO Q4H PRN PRN Reason: Pain (Mild 1-3)/fever Dexamethasone (Dexamethasone) 6 mg PO Q24H JIMBO Last Admin: 06/29/20 22:55 Dose: 6 mg Documented by: GEORGINA Enoxaparin Sodium (Lovenox) 40 mg SUBCUT Q24H JIMBO Remdesivir 200 mg/ Sodium (Chloride) 250 mls @ 250 mls/hr IV ONETIME ONE Stop: 06/29/20 23:04 Remdesivir 100 mg/ Sodium (Chloride) 100 mls @ 100 mls/hr IV Q24H JIMBO Stop: 07/04/20 00:14 Assessment/Plan Comment:: 60 yo female admitted for COVID-19 pneumonia. We will treat with dexamethasone and Remdesivir. Continue supplemetnal oxygen via NC and wean as tolerated.
[2020-06-30] MEDS: Enoxaparin 40 MG/0.4 ML Syringe SUBCUT SCH ×2 (00:32→21:04)
[2020-06-30] MEDS ORDERED: Iopamidol 755 MG/ML 500 ML Multipack Bottle IVPUSH STA (03:07)
--- NOTE | 2020-06-30 03:54 | CT ---
INDICATION: Shortness of breath, COVID TECHNIQUE: Contrast enhanced axial CT imaging through the chest, optimized for assessment of the pulmonary arterial tree. 75 mL Isovue 370 contrast agent was administered intravenously. Sagittal and coronal reconstructions are provided. COMPARISON: AP chest radiograph 06/29/2020 FINDINGS: There is adequate opacification of the pulmonary arterial tree without evidence of thromboembolism. The main pulmonary artery is nonenlarged. The heart is normal in size. There is no pericardial effusion. The thoracic aorta is normal in caliber. There are irregular ground-glass infiltrates throughout both lungs, compatible with COVID-19 pneumonia. There is no pleural effusion or pneumothorax. Mild mediastinal lymphadenopathy is presumably reactive. The thoracic osseous structures are unremarkable. No significant abnormality is demonstrated in the visualized upper abdomen. IMPRESSION: 1. Irregular ground-glass infiltrates throughout both lungs, compatible with COVID-19 pneumonia. 2. No evidence of pulmonary thromboembolism. Please note that all CT scans at this facility use dose modulation, iterative reconstruction, and/or weight-based dosing when appropriate to reduce radiation dose to as low as reasonably achievable. Dictated by Jailene Christensen MD @ Jun 30 2020 3:54AM Signed by Dr. Jailene Christensen @ Jun 30 2020 3:54AM
[2020-06-30] MEDS: Gabapentin 300 MG Cap PO SCH ×3 (05:23→21:05)
[2020-06-30] MEDS ORDERED: Albuterol/Ipratropium 4 GM Inhalation Spray INH PRN (06:00)
[2020-06-30 06:25] LABS: CARBON DIOXIDE,CO2 29.5 mmol/L (21.0-32.0); POTASSIUM,K 4.2 mmol/L (3.5-5.1)
[2020-06-30] MEDS: Pantoprazole 40 MG Tab.CR PO SCH (08:55)
--- NOTE | 2020-06-30 08:58 | PCM.PN ---
- General Info Date of Service: 06/30/20 Subjective Update: Report breathing better this morning. Denies having any fevers, cough, chills, nausea or vomiting. No bowel movements overnight. - Patient Data Vitals - Most Recent: Last Vital Signs Temp 36.1 C 06/30/20 05:17 Pulse 64 06/30/20 05:17 Resp 18 06/30/20 05:17 BP 128/57 L 06/30/20 05:17 Pulse Ox 90 L 06/30/20 05:17 Weight - Most Recent: 122.969 kg I&O - Last 24 Hours: Intake & Output 06/29/20 06/30/20 06/30/20 22:59 06:59 14:59 Intake Total 250 Balance 250 Lab Results Last 24 Hours: Laboratory Results - last 24 hr 06/29/20 06/29/20 06/29/20 Range/Units 18:55 18:55 18:55 WBC 5.03 (4.0-11.0) K/uL RBC 5.15 (4.30-5.90) M/uL Hgb 16.1 H (12.0-16.0) g/dL Hct 49.1 H (36.0-46.0) % MCV 95.3 (80.0-98.0) fL MCH 31.3 (27.0-32.0) pg MCHC 32.8 (31.0-37.0) g/dL RDW Std Deviation 52.5 (28.0-62.0) fl RDW Coeff of [place] 15 (11.0-15.0) % Plt Count 192 (150-400) K/uL MPV 10.40 (7.40-12.00) fL Neut % (Auto) 62.6 (48.0-80.0) % Lymph % (Auto) 22.1 (16.0-40.0) % [place] % (Auto) 14.7 (0.0-15.0) % Eos % (Auto) 0.4 (0.0-7.0) % Baso % (Auto) 0.2 (0.0-1.5) % Neut # (Auto) 3.2 (1.4-5.7) K/uL Lymph # (Auto) 1.1 (0.6-2.4) K/uL [place] # (Auto) 0.7 (0.0-0.8) K/uL Eos # (Auto) 0.0 (0.0-0.7) K/uL Baso # (Auto) 0.0 (0.0-0.1) K/uL Nucleated RBC % 0.0 /100WBC Nucleated RBCs # 0 K/uL D-Dimer, Quantitative 0.94 H (0.0-0.50) mg/L FEU Sodium 139 (136-145) mmol/L Potassium 3.8 (3.5-5.1) mmol/L Chloride 101 (98-107) mmol/L Carbon Dioxide 30.1 (21.0-32.0) mmol/L BUN 15 (7.0-18.0) mg/dL Creatinine 1.3 H (0.6-1.0) mg/dL Est Cr Clr Drug Dosing 40.38 mL/min Estimated GFR (MDRD) 41.5 ml/min Glucose 113 H (74-106) mg/dL Calcium 8.3 L (8.5-10.1) mg/dL Total Bilirubin 1.0 (0.2-1.0) mg/dL Direct Bilirubin (0.0-0.5) mg/dL AST 31 (15-37) IU/L ALT 35 (14-63) IU/L Alkaline Phosphatase 75 (46-116) U/L Total Protein 7.1 (6.4-8.2) g/dL Albumin 3.1 L (3.4-5.0) g/dL Globulin 4.0 (2.6-4.0) g/dL Albumin/Globulin Ratio 0.8 L (0.9-1.6) 06/30/20 06/30/20 Range/Units 05:43 05:43 WBC 3.75 L (4.0-11.0) K/uL RBC 4.82 (4.30-5.90) M/uL Hgb 15.0 (12.0-16.0) g/dL Hct 45.7 (36.0-46.0) % MCV 94.8 (80.0-98.0) fL MCH 31.1 (27.0-32.0) pg MCHC 32.8 (31.0-37.0) g/dL RDW Std Deviation 52.1 (28.0-62.0) fl RDW Coeff of [place] 15 (11.0-15.0) % Plt Count 183 (150-400) K/uL MPV 10.70 (7.40-12.00) fL Neut % (Auto) 82.9 H (48.0-80.0) % Lymph % (Auto) 13.1 L (16.0-40.0) % [place] % (Auto) 3.5 (0.0-15.0) % Eos % (Auto) 0.0 (0.0-7.0) % Baso % (Auto) 0.5 (0.0-1.5) % Neut # (Auto) 3.1 (1.4-5.7) K/uL Lymph # (Auto) 0.5 L (0.6-2.4) K/uL [place] # (Auto) 0.1 (0.0-0.8) K/uL Eos # (Auto) 0.0 (0.0-0.7) K/uL Baso # (Auto) 0.0 (0.0-0.1) K/uL Nucleated RBC % 0.0 /100WBC Nucleated RBCs # 0 K/uL D-Dimer, Quantitative (0.0-0.50) mg/L FEU Sodium 141 (136-145) mmol/L Potassium 4.2 (3.5-5.1) mmol/L Chloride 104 (98-107) mmol/L Carbon Dioxide 29.5 (21.0-32.0) mmol/L BUN 13 (7.0-18.0) mg/dL Creatinine 1.3 H (0.6-1.0) mg/dL Est Cr Clr Drug Dosing 40.38 mL/min Estimated GFR (MDRD) 41.5 ml/min Glucose 172 H (74-106) mg/dL Calcium 8.3 L (8.5-10.1) mg/dL Total Bilirubin 0.8 (0.2-1.0) mg/dL Direct Bilirubin 0.20 (0.0-0.5) mg/dL AST 30 (15-37) IU/L ALT 30 (14-63) IU/L Alkaline Phosphatase 58 (46-116) U/L Total Protein 6.5 (6.4-8.2) g/dL Albumin 2.7 L (3.4-5.0) g/dL Globulin 3.8 (2.6-4.0) g/dL Albumin/Globulin Ratio 0.7 L (0.9-1.6) Med Orders - Current: Current Medications Acetaminophen (Tylenol) 650 mg PO Q4H PRN PRN Reason: Pain (Mild 1-3)/fever Albuterol/Ipratropium (Combivent Respimat) 0 gm INH Q4H PRN PRN Reason: Dyspnea Atorvastatin Calcium (Lipitor) 40 mg PO BEDTIME [facility] Dexamethasone (Dexamethasone) 6 mg PO Q24H [facility] Last Admin: 06/29/20 22:55 Dose: 6 mg Documented by: Enoxaparin Sodium (Lovenox) 40 mg SUBCUT DAILY@2200 [facility] Last Admin: 06/30/20 00:32 Dose: 40 mg Documented by: Folic Acid (Folic Acid) 2 mg PO DAILY [facility] Gabapentin (Neurontin) 600 mg PO TID [facility] Last Admin: 06/30/20 05:23 Dose: 600 mg Documented by: Remdesivir 100 mg/ Sodium (Chloride) 100 mls @ 100 mls/hr IV Q24H [facility] Stop: 07/03/20 22:59 Pantoprazole Sodium (Protonix) 40 mg PO ACBREAKFAST [facility] Discontinued Medications Remdesivir 200 mg/ Sodium (Chloride) 250 mls @ 250 mls/hr IV ONETIME ONE Stop: 06/29/20 23:04 Last Admin: 06/30/20 00:32 Dose: 250 mls/hr Documented by: Remdesivir 100 mg/ Sodium (Chloride) 100 mls @ 100 mls/hr IV Q24H [facility] Stop: 07/03/20 00:14 Iopamidol (Isovue Multipack-370 (76%)) 75 ml IVPUSH ONETIME STA Stop: 06/30/20 03:08 Last Admin: 06/30/20 03:11 Dose: 75 ml Documented by: - Exam General: Alert, Oriented, Cooperative, No Acute Distress Lungs: Clear to Auscultation, Normal Respiratory Effort Cardiovascular: Regular Rate, Regular Rhythm GI/Abdominal Exam: Normal Bowel Sounds, Soft, Non-Tender, No Distention Extremities: Normal Inspection, No Pedal Edema Sepsis Event Note - Evaluation Sepsis Screening Result: No Definite Risk - Focused Exam Vital Signs: Vital Signs Temp Pulse Resp BP Pulse Ox 06/30/20 05:17 36.1 C 64 18 128/57 L 90 L 06/30/20 00:28 36.8 C 73 18 140/52 L 93 L - Problem List & Annotations (1) COVID-19 SNOMED Code(s): 553881316 Code(s): U07.1 - COVID-19 Status: Acute Current Visit: Yes (2) Chronic kidney disease SNOMED Code(s): 079039438 Code(s): N18.9 - CHRONIC KIDNEY DISEASE, UNSPECIFIED Status: Acute Current Visit: Yes (3) Hypoxemia SNOMED Code(s): 315480466 Code(s): R09.02 - HYPOXEMIA Status: Acute Current Visit: Yes - Problem List Review Problem List Initiated/Reviewed/Updated: Yes - My Orders Last 24 Hours: My Active Orders 06/30/20 06:00 Albuterol/Ipratropium [Combivent Respimat] See Dose Instructions INH Q4H PRN 06/30/20 07:40 RT Post Treatment Assessment [RC] Click to Edit RT Pre-Treatment Assessment [RC] Click to Edit 06/30/20 08:00 Pantoprazole [ProTONIX] 40 mg PO ACBREAKFAST - Plan Plan:: Assessment and Plan: 1. Acute hypoxic respiratory failure secondary to COVID-19 pneumonia: - Continue supplemental oxygen prn, combivent q4 prn, dexamethasone 6 mg qd and IV remdesivir. Patient is on a PPI. Encourage incentive spirometer use. - CXR: patchy opacities in LLL and diffuse opacities bilaterally. - CT angio: no PE. 2. Chronic kidney disease: - Avoid nephrotoxic medications. 3. Past medical history of HTN, HLD, stress incontinence, fibromyalgia, RA, depression and anxiety: - Continue home medications. 4. DVT prophylaxis: - Lovenox 40 mg subcut qd.
[2020-06-30] MEDS: Folic Acid 1 MG Tab PO SCH (16:24)
[2020-06-30] MEDS ORDERED: Furosemide 20 MG Tab PO SCH (21:00)
[2020-06-30] MEDS: REMDESIVIR 100 MG in Sodium Chloride 0.9% 100 ML IV SCH (21:04)
[2020-06-30] MEDS: atorvaSTATin 40 MG Tab PO SCH (21:04)
[2020-06-30] MEDS: Dexamethasone 4 MG Tab PO SCH (21:04)
[2020-06-30] MEDS: traZODone 50 MG Tab PO SCH (21:05)
[2020-07-01 06:24] LABS: CARBON DIOXIDE,CO2 28.4 mmol/L (21.0-32.0)
[2020-07-01] MEDS: Gabapentin 300 MG Cap PO SCH ×3 (06:39→21:37)
[2020-07-01] MEDS: Pantoprazole 40 MG Tab.CR PO SCH (06:39)
[2020-07-01] MEDS: Folic Acid 1 MG Tab PO SCH (08:43)
[2020-07-01] MEDS: DULoxetine 30 MG Cap PO SCH (08:43)
[2020-07-01] MEDS: Furosemide 20 MG Tab PO SCH ×2 (08:44→14:14)
--- NOTE | 2020-07-01 09:03 | PCM.PN ---
- General Info Date of Service: 07/01/20 Subjective Update: Reports chills overnight. Denies any fevers, chest pain, cough, nausea, vomiting or abdominal pain. - Patient Data Vitals - Most Recent: Last Vital Signs Temp 36.1 C 07/01/20 08:39 Pulse 59 L 07/01/20 08:39 Resp 16 07/01/20 08:39 BP 128/51 L 07/01/20 08:39 Pulse Ox 94 L 07/01/20 08:39 Weight - Most Recent: 122.969 kg I&O - Last 24 Hours: Intake & Output 06/30/20 07/01/20 07/01/20 22:59 06:59 14:59 Intake Total 860 500 Output Total 1420 400 Balance -560 100 Lab Results Last 24 Hours: Laboratory Results - last 24 hr 07/01/20 07/01/20 Range/Units 05:50 05:50 WBC 8.26 (4.0-11.0) K/uL RBC 4.77 (4.30-5.90) M/uL Hgb 15.0 (12.0-16.0) g/dL Hct 44.9 (36.0-46.0) % MCV 94.1 (80.0-98.0) fL MCH 31.4 (27.0-32.0) pg MCHC 33.4 (31.0-37.0) g/dL RDW Std Deviation 51.2 (28.0-62.0) fl RDW Coeff of [place] 15 (11.0-15.0) % Plt Count 234 (150-400) K/uL MPV 11.30 (7.40-12.00) fL Neut % (Auto) 86.9 H (48.0-80.0) % Lymph % (Auto) 7.0 L (16.0-40.0) % [place] % (Auto) 5.9 (0.0-15.0) % Eos % (Auto) 0.0 (0.0-7.0) % Baso % (Auto) 0.2 (0.0-1.5) % Neut # (Auto) 7.2 H (1.4-5.7) K/uL Lymph # (Auto) 0.6 (0.6-2.4) K/uL [place] # (Auto) 0.5 (0.0-0.8) K/uL Eos # (Auto) 0.0 (0.0-0.7) K/uL Baso # (Auto) 0.0 (0.0-0.1) K/uL Nucleated RBC % 1.3 /100WBC Nucleated RBCs # 0 K/uL Sodium 143 (136-145) mmol/L Potassium 4.0 (3.5-5.1) mmol/L Chloride 107 (98-107) mmol/L Carbon Dioxide 28.4 (21.0-32.0) mmol/L BUN 21 H (7.0-18.0) mg/dL Creatinine 1.1 H (0.6-1.0) mg/dL Est Cr Clr Drug Dosing 47.72 mL/min Estimated GFR (MDRD) 50.3 ml/min Glucose 154 H (74-106) mg/dL Calcium 8.6 (8.5-10.1) mg/dL Total Bilirubin 0.7 (0.2-1.0) mg/dL AST 25 (15-37) IU/L ALT 29 (14-63) IU/L Alkaline Phosphatase 52 (46-116) U/L Total Protein 6.5 (6.4-8.2) g/dL Albumin 2.7 L (3.4-5.0) g/dL Globulin 3.8 (2.6-4.0) g/dL Albumin/Globulin Ratio 0.7 L (0.9-1.6) Med Orders - Current: Current Medications Acetaminophen (Tylenol) 650 mg PO Q4H PRN PRN Reason: Pain (Mild 1-3)/fever Albuterol/Ipratropium (Combivent Respimat) 0 gm INH Q4H PRN PRN Reason: Dyspnea Atorvastatin Calcium (Lipitor) 40 mg PO BEDTIME [facility] Last Admin: 06/30/20 21:04 Dose: 40 mg Documented by: Dexamethasone (Dexamethasone) 6 mg PO Q24H [facility] Last Admin: 06/30/20 21:04 Dose: 6 mg Documented by: Duloxetine HCl (Cymbalta) 90 mg PO DAILY [facility] Last Admin: 07/01/20 08:43 Dose: 90 mg Documented by: Enoxaparin Sodium (Lovenox) 40 mg SUBCUT DAILY@2200 [facility] Last Admin: 06/30/20 21:04 Dose: 40 mg Documented by: Folic Acid (Folic Acid) 2 mg PO DAILY [facility] Last Admin: 07/01/20 08:43 Dose: 2 mg Documented by: Furosemide (Lasix) 20 mg PO BIDDIURETIC [facility] Last Admin: 07/01/20 08:44 Dose: 20 mg Documented by: Gabapentin (Neurontin) 600 mg PO TID [facility] Last Admin: 07/01/20 06:39 Dose: 600 mg Documented by: Remdesivir 100 mg/ Sodium (Chloride) 100 mls @ 100 mls/hr IV Q24H [facility] Stop: 07/03/20 22:59 Last Admin: 06/30/20 21:04 Dose: 100 mls/hr Documented by: Pantoprazole Sodium (Protonix) 40 mg PO ACBREAKFAST [facility] Last Admin: 07/01/20 06:39 Dose: 40 mg Documented by: Trazodone HCl (Trazodone) 75 mg PO BEDTIME [facility] Last Admin: 06/30/20 21:05 Dose: 75 mg Documented by: Discontinued Medications Furosemide (Lasix) 20 mg PO BID [facility] Remdesivir 200 mg/ Sodium (Chloride) 250 mls @ 250 mls/hr IV ONETIME ONE Stop: 06/29/20 23:04 Last Admin: 06/30/20 00:32 Dose: 250 mls/hr Documented by: Remdesivir 100 mg/ Sodium (Chloride) 100 mls @ 100 mls/hr IV Q24H [facility] Stop: 07/03/20 00:14 Iopamidol (Isovue Multipack-370 (76%)) 75 ml IVPUSH ONETIME STA Stop: 06/30/20 03:08 Last Admin: 06/30/20 03:11 Dose: 75 ml Documented by: - Exam General: Alert, Oriented, Cooperative, No Acute Distress Lungs: Clear to Auscultation, Normal Respiratory Effort Cardiovascular: Regular Rate, Regular Rhythm GI/Abdominal Exam: Normal Bowel Sounds, Soft, Non-Tender, No Distention Extremities: Normal Inspection, No Pedal Edema Sepsis Event Note - Evaluation Sepsis Screening Result: No Definite Risk - Focused Exam Vital Signs: Vital Signs Temp Pulse Resp BP Pulse Ox 07/01/20 08:39 36.1 C 59 L 16 128/51 L 94 L 07/01/20 04:14 36.1 C 59 L 18 138/66 91 L 06/30/20 23:48 36.1 C 59 L 18 147/63 H 93 L - Problem List & Annotations (1) COVID-19 SNOMED Code(s): 611506110 Code(s): U07.1 - COVID-19 Status: Acute Current Visit: Yes (2) Chronic kidney disease SNOMED Code(s): 909980746 Code(s): N18.9 - CHRONIC KIDNEY DISEASE, UNSPECIFIED Status: Acute Current Visit: Yes (3) Hypoxemia SNOMED Code(s): 926200016 Code(s): R09.02 - HYPOXEMIA Status: Acute Current Visit: Yes - Problem List Review Problem List Initiated/Reviewed/Updated: Yes - My Orders Last 24 Hours: My Active Orders 06/30/20 21:00 traZODone 75 mg PO BEDTIME 07/01/20 08:00 Furosemide [Lasix] 20 mg PO BIDDIURETIC 07/01/20 09:00 DULoxetine [Cymbalta] 90 mg PO DAILY - Plan Plan:: Assessment and Plan: 1. Acute hypoxic respiratory failure secondary to COVID-19 pneumonia: - Patient on 2.5 L this AM. Continue supplemental oxygen prn, Combivent q4 prn, dexamethasone 6 mg qd, PPI and IV remdesivir. - CXR: patchy opacities in LLL and diffuse opacities bilaterally. - CT angio: no PE. 2. Chronic kidney disease: - Avoid nephrotoxic medications. 3. Past medical history of HTN, HLD, stress incontinence, fibromyalgia, RA, depression and anxiety: - Continue home medications. 4. DVT prophylaxis: - Lovenox 40 mg subcut qd.
[2020-07-01] MEDS: Albuterol/Ipratropium 4 GM Inhalation Spray INH SCH ×2 (18:14→22:47)
[2020-07-01] MEDS: atorvaSTATin 40 MG Tab PO SCH (21:35)
[2020-07-01] MEDS: traZODone 50 MG Tab PO SCH (21:36)
[2020-07-01] MEDS: Dexamethasone 4 MG Tab PO SCH (21:37)
[2020-07-01] MEDS: Enoxaparin 40 MG/0.4 ML Syringe SUBCUT SCH (21:38)
[2020-07-01] MEDS: REMDESIVIR 100 MG in Sodium Chloride 0.9% 100 ML IV SCH (21:43)
[2020-07-02] MEDS: Albuterol/Ipratropium 4 GM Inhalation Spray INH SCH ×8 (01:42→22:59)
[2020-07-02 06:11] LABS: CARBON DIOXIDE,CO2 29.4 mmol/L (21.0-32.0); POTASSIUM,K 3.9 mmol/L (3.5-5.1)
[2020-07-02] MEDS: Gabapentin 300 MG Cap PO SCH ×3 (06:38→22:56)
[2020-07-02] MEDS: Pantoprazole 40 MG Tab.CR PO SCH (06:39)
[2020-07-02] MEDS: Furosemide 20 MG Tab PO SCH ×2 (07:58→14:29)
[2020-07-02] MEDS: Folic Acid 1 MG Tab PO SCH (08:00)
[2020-07-02] MEDS: DULoxetine 30 MG Cap PO SCH (08:00)
--- NOTE | 2020-07-02 08:28 | PCM.PN ---
- General Info Date of Service: 07/02/20 Subjective Update: Reports feeling tired this morning and has mild cough. Denies any fevers, chills, SOB, chest pain, nausea or vomiting. Tolerating PO diet. - Patient Data Vitals - Most Recent: Last Vital Signs Temp 36.3 C 07/02/20 07:47 Pulse 59 L 07/02/20 07:47 Resp 19 07/02/20 07:47 BP 141/57 H 07/02/20 07:47 Pulse Ox 91 L 07/02/20 07:57 Weight - Most Recent: 122.969 kg I&O - Last 24 Hours: Intake & Output 07/01/20 07/02/20 07/02/20 22:59 06:59 14:59 Intake Total 1450 1050 Output Total 1200 1700 Balance 250 -650 Lab Results Last 24 Hours: Laboratory Results - last 24 hr 07/02/20 07/02/20 Range/Units 05:30 05:30 WBC 11.12 H (4.0-11.0) K/uL RBC 4.46 (4.30-5.90) M/uL Hgb 13.6 (12.0-16.0) g/dL Hct 42.1 (36.0-46.0) % MCV 94.4 (80.0-98.0) fL MCH 30.5 (27.0-32.0) pg MCHC 32.3 (31.0-37.0) g/dL RDW Std Deviation 51.1 (28.0-62.0) fl RDW Coeff of [place] 15 (11.0-15.0) % Plt Count 266 (150-400) K/uL MPV 11.20 (7.40-12.00) fL Neut % (Auto) 88.9 H (48.0-80.0) % Lymph % (Auto) 5.9 L (16.0-40.0) % [place] % (Auto) 5.0 (0.0-15.0) % Eos % (Auto) 0.0 (0.0-7.0) % Baso % (Auto) 0.2 (0.0-1.5) % Neut # (Auto) 9.9 H (1.4-5.7) K/uL Lymph # (Auto) 0.7 (0.6-2.4) K/uL [place] # (Auto) 0.6 (0.0-0.8) K/uL Eos # (Auto) 0.0 (0.0-0.7) K/uL Baso # (Auto) 0.0 (0.0-0.1) K/uL Nucleated RBC % 0.0 /100WBC Nucleated RBCs # 0 K/uL Sodium 142 (136-145) mmol/L Potassium 3.9 (3.5-5.1) mmol/L Chloride 107 (98-107) mmol/L Carbon Dioxide 29.4 (21.0-32.0) mmol/L BUN 20 H (7.0-18.0) mg/dL Creatinine 1.0 (0.6-1.0) mg/dL Est Cr Clr Drug Dosing 52.49 mL/min Estimated GFR (MDRD) 56.2 ml/min Glucose 198 H (74-106) mg/dL Calcium 8.3 L (8.5-10.1) mg/dL Total Bilirubin 0.5 (0.2-1.0) mg/dL AST 21 (15-37) IU/L ALT 31 (14-63) IU/L Alkaline Phosphatase 57 (46-116) U/L Total Protein 6.1 L (6.4-8.2) g/dL Albumin 2.5 L (3.4-5.0) g/dL Globulin 3.6 (2.6-4.0) g/dL Albumin/Globulin Ratio 0.7 L (0.9-1.6) Med Orders - Current: Current Medications Acetaminophen (Tylenol) 650 mg PO Q4H PRN PRN Reason: Pain (Mild 1-3)/fever Albuterol/Ipratropium (Combivent Respimat) 0 gm INH Q4H [facility] Last Admin: 07/02/20 06:40 Dose: 1 puff Documented by: Atorvastatin Calcium (Lipitor) 40 mg PO BEDTIME [facility] Last Admin: 07/01/20 21:35 Dose: 40 mg Documented by: Dexamethasone (Dexamethasone) 6 mg PO Q24H [facility] Last Admin: 07/01/20 21:37 Dose: 6 mg Documented by: Duloxetine HCl (Cymbalta) 90 mg PO DAILY [facility] Last Admin: 07/02/20 08:00 Dose: 90 mg Documented by: Enoxaparin Sodium (Lovenox) 40 mg SUBCUT DAILY@2200 [facility] Last Admin: 07/01/20 21:38 Dose: 40 mg Documented by: Folic Acid (Folic Acid) 2 mg PO DAILY [facility] Last Admin: 07/02/20 08:00 Dose: 2 mg Documented by: Furosemide (Lasix) 20 mg PO BIDDIURETIC [facility] Last Admin: 07/02/20 07:58 Dose: 20 mg Documented by: Gabapentin (Neurontin) 600 mg PO TID [facility] Last Admin: 07/02/20 06:38 Dose: 600 mg Documented by: Remdesivir 100 mg/ Sodium (Chloride) 100 mls @ 100 mls/hr IV Q24H [facility] Stop: 07/03/20 22:59 Last Admin: 07/01/20 21:43 Dose: 100 mls/hr Documented by: Pantoprazole Sodium (Protonix) 40 mg PO ACBREAKFAST [facility] Last Admin: 07/02/20 06:39 Dose: 40 mg Documented by: Trazodone HCl (Trazodone) 75 mg PO BEDTIME [facility] Last Admin: 07/01/20 21:36 Dose: 75 mg Documented by: Discontinued Medications Albuterol/Ipratropium (Combivent Respimat) 0 gm INH Q4H PRN PRN Reason: Dyspnea Albuterol/Ipratropium (Combivent Respimat) 0 gm INH Q4H [facility] Last Admin: 07/02/20 08:12 Dose: Not Given Documented by: Furosemide (Lasix) 20 mg PO BID [facility] Remdesivir 200 mg/ Sodium (Chloride) 250 mls @ 250 mls/hr IV ONETIME ONE Stop: 06/29/20 23:04 Last Admin: 06/30/20 00:32 Dose: 250 mls/hr Documented by: Remdesivir 100 mg/ Sodium (Chloride) 100 mls @ 100 mls/hr IV Q24H [facility] Stop: 07/03/20 00:14 Iopamidol (Isovue Multipack-370 (76%)) 75 ml IVPUSH ONETIME STA Stop: 06/30/20 03:08 Last Admin: 06/30/20 03:11 Dose: 75 ml Documented by: - Exam General: Alert, Oriented, Cooperative, No Acute Distress Lungs: Clear to Auscultation, Normal Respiratory Effort Cardiovascular: Regular Rate, Regular Rhythm GI/Abdominal Exam: Normal Bowel Sounds, Soft, Non-Tender, No Distention Extremities: Normal Inspection, No Pedal Edema Sepsis Event Note - Evaluation Sepsis Screening Result: No Definite Risk - Focused Exam Vital Signs: Vital Signs Temp Pulse Resp BP BP Pulse Ox Pulse Ox 07/02/20 07:57 91 L 07/02/20 07:47 36.3 C 59 L 19 141/57 H 91 L 07/02/20 04:15 36.3 C 61 19 138/61 93 L 07/01/20 23:05 36.1 C 60 19 112/67 93 L - Problem List & Annotations (1) COVID-19 SNOMED Code(s): 419957657 Code(s): U07.1 - COVID-19 Status: Acute Current Visit: Yes (2) Chronic kidney disease SNOMED Code(s): 890860483 Code(s): N18.9 - CHRONIC KIDNEY DISEASE, UNSPECIFIED Status: Acute Current Visit: Yes (3) Hypoxemia SNOMED Code(s): 814091831 Code(s): R09.02 - HYPOXEMIA Status: Acute Current Visit: Yes - Problem List Review Problem List Initiated/Reviewed/Updated: Yes - My Orders Last 24 Hours: My Active Orders 07/01/20 08:00 Furosemide [Lasix] 20 mg PO BIDDIURETIC 07/01/20 09:00 DULoxetine [Cymbalta] 90 mg PO DAILY 07/01/20 18:00 Albuterol/Ipratropium [Combivent Respimat] 0 gm INH Q4H 07/03/20 05:11 CBC WITH AUTO DIFF [HEME] AM CMP [COMPREHENSIVE METABOLIC PN,CMP] [CHEM] AM - Plan Plan:: Assessment and Plan: 1. Acute hypoxic respiratory failure secondary to COVID-19 pneumonia: - Patient on 1.5 L this AM. Will continue weak supplemental oxygen as tolerated. Continue Combivent q4 prn, dexamethasone 6 mg qd, PPI and IV remdesivir. - CXR: patchy opacities in LLL and diffuse opacities bilaterally. - CT angio: no PE. 2. Hyperglycemia: - Will check HgbA1c, order SSI and accuchecks TIDAC. 3. Chronic kidney disease: - Avoid nephrotoxic medications. 4. Past medical history of HTN, HLD, stress incontinence, fibromyalgia, RA, depression and anxiety: - Continue home medications. 5. DVT prophylaxis: - Lovenox 40 mg subcut qd.
[2020-07-02] MEDS ORDERED: Oxybutynin 5 MG Tab PO SCH (09:00)
[2020-07-02] MEDS ORDERED: OXYBUTYNIN 10 MG PO SCH (09:00)
[2020-07-02] MEDS: Oxybutynin 5 MG Tab PO SCH ×2 (09:36→21:08)
[2020-07-02] MEDS ORDERED: 50% Dextrose in Water 50 ML Syringe IV PRN (10:33)
[2020-07-02] MEDS ORDERED: Glucagon,Human Recombinant 1 MG Vial IM PRN (10:33)
[2020-07-02 10:53] LABS: HEMOGLOBIN A1C 6.6 %
[2020-07-02] MEDS: Insulin Aspart 100 Units/ML 3 ML Pen SUBCUT SCH ×2 (12:51→17:30)
[2020-07-02] MEDS: REMDESIVIR 100 MG in Sodium Chloride 0.9% 100 ML IV SCH (21:03)
[2020-07-02] MEDS: atorvaSTATin 40 MG Tab PO SCH (21:06)
[2020-07-02] MEDS: traZODone 50 MG Tab PO SCH (21:07)
[2020-07-02] MEDS: Dexamethasone 4 MG Tab PO SCH (22:56)
[2020-07-02] MEDS: Enoxaparin 40 MG/0.4 ML Syringe SUBCUT SCH (22:57)
[2020-07-03] MEDS: Albuterol/Ipratropium 4 GM Inhalation Spray INH SCH ×6 (02:58→22:47)
[2020-07-03] MEDS: Pantoprazole 40 MG Tab.CR PO SCH (06:33)
[2020-07-03] MEDS: Gabapentin 300 MG Cap PO SCH ×3 (06:33→22:47)
[2020-07-03 07:10] LABS: CARBON DIOXIDE,CO2 30.5 mmol/L (21.0-32.0)
--- NOTE | 2020-07-03 08:24 | PCM.PN ---
- General Info Date of Service: 07/03/20 Subjective Update: Reports breathing better yesterday evening and tolerating oral diet. Still gets short of breath with ambulation. Denies any fevers, chills, diarrhea. - Patient Data Vitals - Most Recent: Last Vital Signs Temp 36.4 C 07/03/20 03:08 Pulse 65 07/03/20 03:08 Resp 16 07/03/20 03:08 BP 139/67 07/03/20 03:08 Pulse Ox 92 L 07/03/20 03:17 Weight - Most Recent: 122.969 kg I&O - Last 24 Hours: Intake & Output 07/02/20 07/03/20 07/03/20 22:59 06:59 14:59 Intake Total 2310 1560 Output Total 1850 1800 Balance 460 -240 Lab Results Last 24 Hours: Laboratory Results - last 24 hr 07/02/20 07/02/20 07/02/20 Range/Units 05:31 12:49 17:27 WBC (4.0-11.0) K/uL RBC (4.30-5.90) M/uL Hgb (12.0-16.0) g/dL Hct (36.0-46.0) % MCV (80.0-98.0) fL MCH (27.0-32.0) pg MCHC (31.0-37.0) g/dL RDW Std Deviation (28.0-62.0) fl RDW Coeff of [place] (11.0-15.0) % Plt Count (150-400) K/uL MPV (7.40-12.00) fL Neut % (Auto) (48.0-80.0) % Lymph % (Auto) (16.0-40.0) % [place] % (Auto) (0.0-15.0) % Eos % (Auto) (0.0-7.0) % Baso % (Auto) (0.0-1.5) % Neut # (Auto) (1.4-5.7) K/uL Lymph # (Auto) (0.6-2.4) K/uL [place] # (Auto) (0.0-0.8) K/uL Eos # (Auto) (0.0-0.7) K/uL Baso # (Auto) (0.0-0.1) K/uL Nucleated RBC % /100WBC Nucleated RBCs # K/uL Sodium (136-145) mmol/L Potassium (3.5-5.1) mmol/L Chloride (98-107) mmol/L Carbon Dioxide (21.0-32.0) mmol/L BUN (7.0-18.0) mg/dL Creatinine (0.6-1.0) mg/dL Est Cr Clr Drug Dosing mL/min Estimated GFR (MDRD) ml/min Glucose (74-106) mg/dL POC Glucose 150 H 210 H (60-110) mg/dL Hemoglobin A1c 6.6 H (4.5 - 6.2) % Calcium (8.5-10.1) mg/dL Total Bilirubin (0.2-1.0) mg/dL AST (15-37) IU/L ALT (14-63) IU/L Alkaline Phosphatase (46-116) U/L Total Protein (6.4-8.2) g/dL Albumin (3.4-5.0) g/dL Globulin (2.6-4.0) g/dL Albumin/Globulin Ratio (0.9-1.6) 07/03/20 07/03/20 07/03/20 Range/Units 06:20 06:20 06:31 WBC 9.91 (4.0-11.0) K/uL RBC 4.68 (4.30-5.90) M/uL Hgb 14.3 (12.0-16.0) g/dL Hct 44.0 (36.0-46.0) % MCV 94.0 (80.0-98.0) fL MCH 30.6 (27.0-32.0) pg MCHC 32.5 (31.0-37.0) g/dL RDW Std Deviation 50.0 (28.0-62.0) fl RDW Coeff of [place] 15 (11.0-15.0) % Plt Count 265 (150-400) K/uL MPV 10.60 (7.40-12.00) fL Neut % (Auto) 84.0 H (48.0-80.0) % Lymph % (Auto) 9.4 L (16.0-40.0) % [place] % (Auto) 6.5 (0.0-15.0) % Eos % (Auto) 0.0 (0.0-7.0) % Baso % (Auto) 0.1 (0.0-1.5) % Neut # (Auto) 8.3 H (1.4-5.7) K/uL Lymph # (Auto) 0.9 (0.6-2.4) K/uL [place] # (Auto) 0.6 (0.0-0.8) K/uL Eos # (Auto) 0.0 (0.0-0.7) K/uL Baso # (Auto) 0.0 (0.0-0.1) K/uL Nucleated RBC % 0.0 /100WBC Nucleated RBCs # 0 K/uL Sodium 142 (136-145) mmol/L Potassium 4.0 (3.5-5.1) mmol/L Chloride 105 (98-107) mmol/L Carbon Dioxide 30.5 (21.0-32.0) mmol/L BUN 21 H (7.0-18.0) mg/dL Creatinine 1.1 H (0.6-1.0) mg/dL Est Cr Clr Drug Dosing 47.72 mL/min Estimated GFR (MDRD) 50.3 ml/min Glucose 155 H (74-106) mg/dL POC Glucose 163 H (60-110) mg/dL Hemoglobin A1c (4.5 - 6.2) % Calcium 8.4 L (8.5-10.1) mg/dL Total Bilirubin 0.7 (0.2-1.0) mg/dL AST 23 (15-37) IU/L ALT 34 (14-63) IU/L Alkaline Phosphatase 56 (46-116) U/L Total Protein 6.2 L (6.4-8.2) g/dL Albumin 2.6 L (3.4-5.0) g/dL Globulin 3.6 (2.6-4.0) g/dL Albumin/Globulin Ratio 0.7 L (0.9-1.6) Med Orders - Current: Current Medications Acetaminophen (Tylenol) 650 mg PO Q4H PRN PRN Reason: Pain (Mild 1-3)/fever Albuterol/Ipratropium (Combivent Respimat) 0 gm INH Q4H [facility] Last Admin: 02/13/21 06:34 Dose: 1 puff Documented by: Atorvastatin Calcium (Lipitor) 40 mg PO BEDTIME [facility] Last Admin: 07/02/20 21:06 Dose: 40 mg Documented by: Dexamethasone (Dexamethasone) 6 mg PO Q24H [facility] Last Admin: 07/02/20 22:56 Dose: 6 mg Documented by: Dextrose/Water (Dextrose 50% In Water) 50 ml IV ASDIRECTED PRN PRN Reason: Hypoglycemia Duloxetine HCl (Cymbalta) 90 mg PO DAILY [facility] Last Admin: 07/02/20 08:00 Dose: 90 mg Documented by: Enoxaparin Sodium (Lovenox) 40 mg SUBCUT DAILY@2200 [facility] Last Admin: 07/02/20 22:57 Dose: 40 mg Documented by: Folic Acid (Folic Acid) 2 mg PO DAILY [facility] Last Admin: 07/02/20 08:00 Dose: 2 mg Documented by: Furosemide (Lasix) 20 mg PO BIDDIURETIC [facility] Last Admin: 07/02/20 14:29 Dose: 20 mg Documented by: Gabapentin (Neurontin) 600 mg PO TID [facility] Last Admin: 07/03/20 06:33 Dose: 600 mg Documented by: Glucagon (Glucagen) 1 mg IM ASDIRECTED PRN PRN Reason: Hypoglycemia Remdesivir 100 mg/ Sodium (Chloride) 100 mls @ 100 mls/hr IV Q24H [facility] Stop: 07/03/20 22:59 Last Admin: 07/02/20 21:03 Dose: 100 mls/hr Documented by: Insulin Aspart (Novolog) 0 unit SUBCUT TIDAC [facility]; Protocol Last Admin: 07/02/20 17:30 Dose: 2 unit Documented by: Oxybutynin Chloride (Oxybutynin) 5 mg PO BID [facility] Last Admin: 07/02/20 21:08 Dose: 5 mg Documented by: Pantoprazole Sodium (Protonix) 40 mg PO ACBREAKFAST [facility] Last Admin: 07/03/20 06:33 Dose: 40 mg Documented by: Trazodone HCl (Trazodone) 75 mg PO BEDTIME [facility] Last Admin: 07/02/20 21:07 Dose: 75 mg Documented by: Discontinued Medications Albuterol/Ipratropium (Combivent Respimat) 0 gm INH Q4H PRN PRN Reason: Dyspnea Albuterol/Ipratropium (Combivent Respimat) 0 gm INH Q4H [facility] Last Admin: 07/02/20 08:12 Dose: Not Given Documented by: Furosemide (Lasix) 20 mg PO BID [facility] Remdesivir 200 mg/ Sodium (Chloride) 250 mls @ 250 mls/hr IV ONETIME ONE Stop: 06/29/20 23:04 Last Admin: 06/30/20 00:32 Dose: 250 mls/hr Documented by: Remdesivir 100 mg/ Sodium (Chloride) 100 mls @ 100 mls/hr IV Q24H [facility] Stop: 07/03/20 00:14 Iopamidol (Isovue Multipack-370 (76%)) 75 ml IVPUSH ONETIME STA Stop: 06/30/20 03:08 Last Admin: 06/30/20 03:11 Dose: 75 ml Documented by: Oxybutynin Chloride (Oxybutynin) 10 mg PO DAILY [facility] Oxybutynin 10mg Er 1 each PO DAILY [facility] Last Admin: 07/02/20 09:18 Dose: Not Given Documented by: - Exam General: Alert, Oriented, Cooperative, No Acute Distress Lungs: Clear to Auscultation, Normal Respiratory Effort Cardiovascular: Regular Rate, Regular Rhythm GI/Abdominal Exam: Normal Bowel Sounds, Soft, Non-Tender, No Distention Extremities: Normal Inspection, No Pedal Edema Sepsis Event Note - Evaluation Sepsis Screening Result: No Definite Risk - Focused Exam Vital Signs: Vital Signs Temp Pulse Resp BP Pulse Ox 07/03/20 03:17 92 L 07/03/20 03:08 36.4 C 65 16 139/67 90 L 07/02/20 23:01 36.5 C 58 L 16 137/64 93 L - Problem List & Annotations (1) COVID-19 SNOMED Code(s): 510788356 Code(s): U07.1 - COVID-19 Status: Acute Current Visit: Yes (2) Chronic kidney disease SNOMED Code(s): 371166921 Code(s): N18.9 - CHRONIC KIDNEY DISEASE, UNSPECIFIED Status: Acute Current Visit: Yes (3) Hypoxemia SNOMED Code(s): 681221650 Code(s): R09.02 - HYPOXEMIA Status: Acute Current Visit: Yes - Problem List Review Problem List Initiated/Reviewed/Updated: Yes - My Orders Last 24 Hours: My Active Orders 07/02/20 09:30 Oxybutynin 5 mg PO BID 07/02/20 10:33 Accu Check [Blood Glucose Check, Bedside] [RC] TIDAC Dextrose 50% in Water 50 ml IV ASDIRECTED PRN Glucagon,Human Recombinant [GlucaGen] 1 mg IM ASDIRECTED PRN 07/02/20 11:30 Insulin Aspart [NovoLOG] See Protocol SUBCUT T[facility]AC - Plan Plan:: Assessment and Plan: 1. Acute hypoxic respiratory failure secondary to COVID-19 pneumonia: - Patient on 1.5 L today and we will continue to try and wean supplemental oxygen as tolerated. Continue Combivent q4 prn, dexamethasone 6 mg qd, PPI and IV remdesivir. - CXR: patchy opacities in LLL and diffuse opacities bilaterally. - CT angio: no PE. 2. Hyperglycemia: - HgbA1c 6.6. Patient started on SSI and accuchecks TIDAC. 3. Chronic kidney disease: - Avoid nephrotoxic medications. 4. Past medical history of HTN, HLD, stress incontinence, fibromyalgia, RA, depression and anxiety: - Continue home medications. 5. DVT prophylaxis: - Lovenox 40 mg subcut qd.
[2020-07-03] MEDS: Oxybutynin 5 MG Tab PO SCH ×2 (09:09→20:22)
[2020-07-03] MEDS: DULoxetine 30 MG Cap PO SCH (09:09)
[2020-07-03] MEDS: Furosemide 20 MG Tab PO SCH ×2 (09:10→14:08)
[2020-07-03] MEDS: Folic Acid 1 MG Tab PO SCH (09:10)
[2020-07-03] MEDS: Insulin Aspart 100 Units/ML 3 ML Pen SUBCUT SCH ×3 (09:12→18:14)
[2020-07-03] MEDS: Dexamethasone 4 MG Tab PO SCH (13:28)
[2020-07-03] MEDS: atorvaSTATin 40 MG Tab PO SCH (20:22)
[2020-07-03] MEDS: traZODone 50 MG Tab PO SCH (20:22)
[2020-07-03] MEDS: REMDESIVIR 100 MG in Sodium Chloride 0.9% 100 ML IV SCH (21:05)
[2020-07-03] MEDS: Enoxaparin 40 MG/0.4 ML Syringe SUBCUT SCH (22:48)
[2020-07-04] MEDS: Albuterol/Ipratropium 4 GM Inhalation Spray INH SCH ×3 (02:50→09:58)
[2020-07-04] MEDS: Pantoprazole 40 MG Tab.CR PO SCH (06:31)
[2020-07-04] MEDS: Gabapentin 300 MG Cap PO SCH (06:31)
[2020-07-04 06:55] LABS: CARBON DIOXIDE,CO2 29.1 mmol/L (21.0-32.0); POTASSIUM,K 3.9 mmol/L (3.5-5.1)
[2020-07-04] MEDS: Furosemide 20 MG Tab PO SCH (08:15)
[2020-07-04] MEDS: DULoxetine 30 MG Cap PO SCH (08:16)
[2020-07-04] MEDS: Folic Acid 1 MG Tab PO SCH (08:16)
[2020-07-04] MEDS: Oxybutynin 5 MG Tab PO SCH (08:16)
[2020-07-04] MEDS: Insulin Aspart 100 Units/ML 3 ML Pen SUBCUT SCH ×2 (09:01→12:18)
--- NOTE | 2020-07-04 11:16 | PCM.DCSUM1 ---
Discharge Summary - Hospital Course Free Text/Narrative:: 60 yo female with pmh of RA and fibromyalgia who presents to the ED with complaints of shortness of breath. Patient tested positive for COVID-19 on June 20. Patient had symptoms of fever, sinus congestion, shortness of breath and diarrhea. Patient came to the ED tonight due to shortness of breath worsening. CT angiogram ruled out PE but did sow b/l ground glass opacities, COVID tested postive,was found to be hypoxic (90%) in ER on RA, started on oxy gen 2Lts. Patient was admitted for acute hypoxia respiratory failure due to COVID-19 We will treat with dexamethasone, Combivent and Remdesivir, incentive spirometry supplemental oxygen via NC and wean as tolerated. Patient had hyperglycemia during her stay, her HbA1c was 6.6, started on SSI, patient was wean off to 1lts on RA and needed 1-2lts while ambulation. She was keen to be discharged home and was hemodynamically stable for dc with home oxygen for 4 weeks. Patient was also started on metformin for her newly diagnosed DM. Patient was a close follow up with her pcp upon dc. - Discharge Data Discharge Date: 07/04/20 Discharge Disposition: Home, Self-Care 01 Condition: Good - Referral to Home Health Primary Care Physician: PCP None - Discharge Diagnosis/Problem(s) (1) COVID-19 SNOMED Code(s): 538676491 ICD Code: U07.1 - COVID-19 Status: Acute Current Visit: Yes (2) Chronic kidney disease SNOMED Code(s): 992067041 ICD Code: N18.9 - CHRONIC KIDNEY DISEASE, UNSPECIFIED Status: Acute Current Visit: Yes (3) Hypoxemia SNOMED Code(s): 937282189 ICD Code: R09.02 - HYPOXEMIA Status: Acute Current Visit: Yes - Discharge Plan *PRESCRIPTION DRUG MONITORING PROGRAM REVIEWED*: Not Applicable *COPY OF PRESCRIPTION DRUG MONITORING REPORT IN PATIENT RONALDO: Not Applicable Prescriptions/Med Rec: dexAMETHasone [Dexamethasone] 6 mg PO Q24H #4 tablet metFORMIN [Glucophage XR] 500 mg PO WITHDINNER #30 tab.er Home Medications: Home Meds DULoxetine HCl [Duloxetine HCl] 90 mg PO DAILY 05/15/19 [History] Etanercept [Enbrel] 1 injection SUBCUT WEEKLY 05/15/19 [History] Folic Acid 2 mg PO DAILY 05/15/19 [History] Furosemide [Lasix] 20 mg PO BID 05/15/19 [History] Gabapentin [Neurontin] 600 mg PO TID 05/15/19 [History] Magnesium Oxide [Magnesium] 400 mg PO BEDTIME 05/15/19 [History] Nystatin 1 applic TOP TID PRN 05/15/19 [History] Oxybutynin Chloride [Oxybutynin Chloride ER] 10 mg PO DAILY 05/15/19 [History] atorvaSTATin Calcium [Atorvastatin Calcium] 40 mg PO BEDTIME 05/15/19 [History] metHOTREXate sodium [Trexall] 15 mg PO WE 05/15/19 [History] traZODone HCl [Trazodone HCl] 75 mg PO BEDTIME 05/15/19 [History] Cholecalciferol (Vitamin D3) [Vitamin D3] 5,000 unit PO DAILY 05/19/19 [History] Omeprazole 40 mg PO ACBREAKFAST 07/01/20 [History] dexAMETHasone [Dexamethasone] 6 mg PO Q24H #4 tablet 07/04/20 [Rx] metFORMIN [Glucophage XR] 500 mg PO WITHDINNER #30 tab.er 07/04/20 [Rx] Patient Handouts: COVID-19 Frequently Asked Questions, COVID-19, What You Should Know About COVID-19 to Protect Yourself and Others - [facility], Metformin tablets, Dexamethasone tablets Referrals: Ivonne Mullins DO [Ordering Only Provider] - 07/19/20 9:45 am - Discharge Summary/Plan Comment DC Time >30 min.: No - Patient Data Vitals - Most Recent: Last Vital Signs Temp 36.2 C 07/04/20 08:07 Pulse 62 07/04/20 08:07 Resp 16 07/04/20 08:07 BP 140/69 07/04/20 08:07 Pulse Ox 91 L 07/04/20 08:07 Weight - Most Recent: 122.969 kg I&O - Last 24 hours: Intake & Output 07/03/20 07/04/20 07/04/20 22:59 06:59 14:59 Intake Total 2180 2210 Output Total 1900 2700 Balance 280 -490 Lab Results - Last 24 hrs: Laboratory Results - last 24 hr 02/13/21 02/13/21 02/13/21 Range/Units 11:35 17:41 18:33 WBC (4.0-11.0) K/uL RBC (4.30-5.90) M/uL Hgb (12.0-16.0) g/dL Hct (36.0-46.0) % MCV (80.0-98.0) fL MCH (27.0-32.0) pg MCHC (31.0-37.0) g/dL RDW Std Deviation (28.0-62.0) fl RDW Coeff of [place] (11.0-15.0) % Plt Count (150-400) K/uL MPV (7.40-12.00) fL Neut % (Auto) (48.0-80.0) % Lymph % (Auto) (16.0-40.0) % [place] % (Auto) (0.0-15.0) % Eos % (Auto) (0.0-7.0) % Baso % (Auto) (0.0-1.5) % Neut # (Auto) (1.4-5.7) K/uL Lymph # (Auto) (0.6-2.4) K/uL [place] # (Auto) (0.0-0.8) K/uL Eos # (Auto) (0.0-0.7) K/uL Baso # (Auto) (0.0-0.1) K/uL Nucleated RBC % /100WBC Nucleated RBCs # K/uL Sodium (136-145) mmol/L Potassium (3.5-5.1) mmol/L Chloride (98-107) mmol/L Carbon Dioxide (21.0-32.0) mmol/L BUN (7.0-18.0) mg/dL Creatinine (0.6-1.0) mg/dL Est Cr Clr Drug Dosing mL/min Estimated GFR (MDRD) ml/min Glucose (74-106) mg/dL POC Glucose 296 H 172 H (60-110) mg/dL Calcium (8.5-10.1) mg/dL Total Bilirubin (0.2-1.0) mg/dL AST (15-37) IU/L ALT (14-63) IU/L Alkaline Phosphatase (46-116) U/L Total Protein (6.4-8.2) g/dL Albumin (3.4-5.0) g/dL Globulin (2.6-4.0) g/dL Albumin/Globulin Ratio (0.9-1.6) Urine Color YELLOW Urine Appearance CLEAR Urine pH 6.5 (5.0-8.0) Ur Specific [place] 1.010 (1.001-1.035) Urine Protein NEGATIVE (NEGATIVE) mg/dL Urine Glucose (UA) NEGATIVE (NEGATIVE) mg/dL Urine Ketones NEGATIVE (NEGATIVE) mg/dL Urine Occult Blood NEGATIVE (NEGATIVE) Urine Nitrite NEGATIVE (NEGATIVE) Urine Bilirubin NEGATIVE (NEGATIVE) Urine Urobilinogen 0.2 (<2.0) EU/dL Ur Leukocyte Esterase NEGATIVE (NEGATIVE) 07/04/20 07/04/20 07/04/20 Range/Units 06:25 06:25 06:27 WBC 10.92 (4.0-11.0) K/uL RBC 4.69 (4.30-5.90) M/uL Hgb 14.5 (12.0-16.0) g/dL Hct 43.5 (36.0-46.0) % MCV 92.8 (80.0-98.0) fL MCH 30.9 (27.0-32.0) pg MCHC 33.3 (31.0-37.0) g/dL RDW Std Deviation 48.9 (28.0-62.0) fl RDW Coeff of [place] 15 (11.0-15.0) % Plt Count 307 (150-400) K/uL MPV 11.10 (7.40-12.00) fL Neut % (Auto) 81.3 H (48.0-80.0) % Lymph % (Auto) 10.6 L (16.0-40.0) % [place] % (Auto) 7.9 (0.0-15.0) % Eos % (Auto) 0.0 (0.0-7.0) % Baso % (Auto) 0.2 (0.0-1.5) % Neut # (Auto) 8.9 H (1.4-5.7) K/uL Lymph # (Auto) 1.2 (0.6-2.4) K/uL [place] # (Auto) 0.9 H (0.0-0.8) K/uL Eos # (Auto) 0.0 (0.0-0.7) K/uL Baso # (Auto) 0.0 (0.0-0.1) K/uL Nucleated RBC % 0.0 /100WBC Nucleated RBCs # 0 K/uL Sodium 141 (136-145) mmol/L Potassium 3.9 (3.5-5.1) mmol/L Chloride 105 (98-107) mmol/L Carbon Dioxide 29.1 (21.0-32.0) mmol/L BUN 24 H (7.0-18.0) mg/dL Creatinine 1.1 H (0.6-1.0) mg/dL Est Cr Clr Drug Dosing 47.72 mL/min Estimated GFR (MDRD) 50.3 ml/min Glucose 173 H (74-106) mg/dL POC Glucose 169 H (60-110) mg/dL Calcium 8.6 (8.5-10.1) mg/dL Total Bilirubin 0.8 (0.2-1.0) mg/dL AST 18 (15-37) IU/L ALT 35 (14-63) IU/L Alkaline Phosphatase 55 (46-116) U/L Total Protein 6.3 L (6.4-8.2) g/dL Albumin 2.6 L (3.4-5.0) g/dL Globulin 3.7 (2.6-4.0) g/dL Albumin/Globulin Ratio 0.7 L (0.9-1.6) Urine Color Urine Appearance Urine pH (5.0-8.0) Ur Specific [place] (1.001-1.035) Urine Protein (NEGATIVE) mg/dL Urine Glucose (UA) (NEGATIVE) mg/dL Urine Ketones (NEGATIVE) mg/dL Urine Occult Blood (NEGATIVE) Urine Nitrite (NEGATIVE) Urine Bilirubin (NEGATIVE) Urine Urobilinogen (<2.0) EU/dL Ur Leukocyte Esterase (NEGATIVE) Med Orders - Current: Current Medications Acetaminophen (Tylenol) 650 mg PO Q4H PRN PRN Reason: Pain (Mild 1-3)/fever Albuterol/Ipratropium (Combivent Respimat) 0 gm INH Q4H [facility] Last Admin: 07/04/20 09:58 Dose: 1 puff Documented by: Atorvastatin Calcium (Lipitor) 40 mg PO BEDTIME [facility] Last Admin: 07/03/20 20:22 Dose: 40 mg Documented by: Dexamethasone (Dexamethasone) 6 mg PO Q24H [facility] Last Admin: 07/03/20 13:28 Dose: 6 mg Documented by: Dextrose/Water (Dextrose 50% In Water) 50 ml IV ASDIRECTED PRN PRN Reason: Hypoglycemia Duloxetine HCl (Cymbalta) 90 mg PO DAILY [facility] Last Admin: 07/04/20 08:16 Dose: 90 mg Documented by: Enoxaparin Sodium (Lovenox) 40 mg SUBCUT DAILY@2200 [facility] Last Admin: 07/03/20 22:48 Dose: 40 mg Documented by: Folic Acid (Folic Acid) 2 mg PO DAILY [facility] Last Admin: 07/04/20 08:16 Dose: 2 mg Documented by: Furosemide (Lasix) 20 mg PO BIDDIURETIC [facility] Last Admin: 07/04/20 08:15 Dose: 20 mg Documented by: Gabapentin (Neurontin) 600 mg PO TID [facility] Last Admin: 07/04/20 06:31 Dose: 600 mg Documented by: Glucagon (Glucagen) 1 mg IM ASDIRECTED PRN PRN Reason: Hypoglycemia Insulin Aspart (Novolog) 0 unit SUBCUT TIDAC [facility]; Protocol Last Admin: 07/04/20 09:01 Dose: 1 unit Documented by: Oxybutynin Chloride (Oxybutynin) 5 mg PO BID [facility] Last Admin: 07/04/20 08:16 Dose: 5 mg Documented by: Pantoprazole Sodium (Protonix) 40 mg PO ACBREAKFAST [facility] Last Admin: 07/04/20 06:31 Dose: 40 mg Documented by: Trazodone HCl (Trazodone) 75 mg PO BEDTIME [facility] Last Admin: 07/03/20 20:22 Dose: 75 mg Documented by: Discontinued Medications Albuterol/Ipratropium (Combivent Respimat) 0 gm INH Q4H PRN PRN Reason: Dyspnea Albuterol/Ipratropium (Combivent Respimat) 0 gm INH Q4H [facility] Last Admin: 07/02/20 08:12 Dose: Not Given Documented by: Dexamethasone (Dexamethasone) 6 mg PO Q24H [facility] Last Admin: 07/02/20 22:56 Dose: 6 mg Documented by: Furosemide (Lasix) 20 mg PO BID [facility] Remdesivir 200 mg/ Sodium (Chloride) 250 mls @ 250 mls/hr IV ONETIME ONE Stop: 06/29/20 23:04 Last Admin: 06/30/20 00:32 Dose: 250 mls/hr Documented by: Remdesivir 100 mg/ Sodium (Chloride) 100 mls @ 100 mls/hr IV Q24H [facility] Stop: 07/03/20 00:14 Remdesivir 100 mg/ Sodium (Chloride) 100 mls @ 100 mls/hr IV Q24H [facility] Stop: 07/03/20 22:59 Last Admin: 07/03/20 21:05 Dose: 100 mls/hr Documented by: Iopamidol (Isovue Multipack-370 (76%)) 75 ml IVPUSH ONETIME STA Stop: 06/30/20 03:08 Last Admin: 06/30/20 03:11 Dose: 75 ml Documented by: Oxybutynin Chloride (Oxybutynin) 10 mg PO DAILY [facility] Oxybutynin 10mg Er 1 each PO DAILY [facility] Last Admin: 07/02/20 09:18 Dose: Not Given Documented by:
[2020-07-04] MEDS ORDERED: Polyethylene Glycol 3350 Powder 17 GM Packet PO ONE (11:30)
[2020-07-04] MEDS: Dexamethasone 4 MG Tab PO SCH (12:04)
== END 2020-07-04 13:10 | disposition home or self-care (01) | DRG 177 ==
LOC: MW.ED 17:56 → MW.MS 19:38
PROVIDERS: ADMIT Internal Medicine; ATTEND Internal Medicine
PROC: XW033E5 Introduction of Remdesivir Anti-infective into Peripheral Vein, Percutaneous Approach, New Technology Group 5 (ICD-10-PCS; principal; 2020-06-29)
DX: U07.1 COVID-19 (principal); J96.01 Acute respiratory failure with hypoxia; Z68.42 Body mass index [BMI] 45.0-49.9, adult; N18.9 Chronic kidney disease, unspecified; E78.00 Pure hypercholesterolemia, unspecified; K21.9 Gastro-esophageal reflux disease without esophagitis; M79.7 Fibromyalgia; F41.9 Anxiety disorder, unspecified; F32.9 Major depressive disorder, single episode, unspecified; E66.9 Obesity, unspecified; I10 Essential (primary) hypertension; M06.9 Rheumatoid arthritis, unspecified; M85.80 Other specified disorders of bone density and structure, unspecified site; Z79.84 Long term (current) use of oral hypoglycemic drugs; Z79.899 Other long term (current) drug therapy; Z88.1 Allergy status to other antibiotic agents; Z87.440 Personal history of urinary (tract) infections; Z98.41 Cataract extraction status, right eye; Z98.42 Cataract extraction status, left eye; Z90.710 Acquired absence of both cervix and uterus; Z87.891 Personal history of nicotine dependence
CPT/HCPCS: 36415; 71045; 71045-26; 71275; 71275-26; 80053; 81003; 82248; 82962; 83036; 85025; 85379; 99284; 99285-25; A9270-GY; J1650; J1815-GY; J7050; J8540; Q9967

== ENCOUNTER 2022-09-22 09:29 | Emergency (ER) | payer BC ==
[2022-09-22] MEDS ORDERED: Ketorolac 30 MG/ML SDV IVPUSH ONE (10:34)
[2022-09-22] MEDS ORDERED: Sodium Chloride 0.9% 1,000 ML IV ONE (10:34)
[2022-09-22] MEDS ORDERED: Alum Hydro/Mag Hydro/Simeth XS 15 ML, Lidocaine 2% 5 ML PO ONE ×2 (10:48)
[2022-09-22 11:23] LABS: BASOPHILS PERCENT AUTO 0.2 % (0.0-1.5); EOSINOPHILS ABSOLUTE AUTO 0.1 K/uL (0.0-0.7); EOSINOPHILS PERCENT AUTO 0.7 % (0.0-7.0); HEMATOCRIT 44.2 % (36.0-46.0); HEMOGLOBIN 14.6 g/dL (12.0-16.0); LYMPHOCYTES ABSOLUTE AUTO 1.1 K/uL (0.6-2.4); LYMPHOCYTES PERCENT AUTO 10.6 % (16.0-40.0); MEAN CORPUSCULAR HEMOGLOBIN 31.9 pg (27.0-32.0); MEAN CORPUSCULAR VOLUME 96.5 fL (80.0-98.0); MONOCYTES ABSOLUTE AUTO 0.7 K/uL (0.0-0.8); MONOCYTES PERCENT AUTO 6.9 % (0.0-15.0); NEUTROPHILS ABSOLUTE AUTO 8.5 K/uL (1.4-5.7); NEUTROPHILS PERCENT AUTO 81.6 % (48.0-80.0); NRBC ABSOLUTE 0 K/uL; PLATELET COUNT,PLT 275 K/uL (150-400); RED BLOOD CELL COUNT 4.58 M/uL (4.30-5.90); WHITE BLOOD CELL COUNT,WBC 10.39 K/uL (4.0-11.0)
[2022-09-22 12:02] LABS: ALBUMIN 3.5 g/dL (3.4-5.0); BILIRUBIN TOTAL 1.4 mg/dL (0.2-1.0); CARBON DIOXIDE,CO2 33.7 mmol/L (21.0-32.0); CREATININE 1.2 mg/dL (0.6-1.0); EST CRCL DRUG DOSING (CG) 42.62 mL/min; POTASSIUM,K 3.5 mmol/L (3.5-5.1)
== END 2022-09-22 14:30 | disposition home or self-care (01) ==
LOC: MW.ED 09:29
DX: K80.20 Calculus of gallbladder without cholecystitis without obstruction (principal); E78.00 Pure hypercholesterolemia, unspecified; I10 Essential (primary) hypertension; K21.9 Gastro-esophageal reflux disease without esophagitis; E66.9 Obesity, unspecified; Z68.42 Body mass index [BMI] 45.0-49.9, adult; Z88.0 Allergy status to penicillin; Z86.16 Personal history of COVID-19; Z79.899 Other long term (current) drug therapy; Z79.84 Long term (current) use of oral hypoglycemic drugs
CPT/HCPCS: 36415; 71045; 76705; 80053; 83690; 85025; 87070; 87880; 99284; A9270